=== PATIENT | female | born 1965 | race Caucasian/White ===

== ENCOUNTER → 2021-08-17 13:22 | Outpatient (BNVA) | payer OTHER, SELFPAY | PROVIDERS: PCP Internal Medicine; Referring Provider Internal Medicine; Visit Provider Surgery | DX: R22.9 Localized swelling, mass and lump, unspecified (principal) | CPT/HCPCS: 99202 ==

== ENCOUNTER 2021-09-18 07:40 | Outpatient (REF) | payer OTHER, SELFPAY ==
[2021-09-18 07:51] VITALS: BP 157/69; PULSE 110; RESP 16; TEMP 36.9; O2SAT 98
[2021-09-18 07:52] VITALS: BMI 17.9
--- NOTE | 2021-09-18 08:40 | W.PM.OPN ---
Operative Note Operative Note Date of Service: 09/18/21 Narrative: Preop diagnosis: epidermal inclusion cyst, sternum Postop diagnosis: same Procedure : excision of epidermal inclusion cyst, sternum Surgeon: Fan Ortega MD The patient is a 56F with a cystic mass on the sternum, about 3.4 cm in diameter. She understood the technique of excision under local anesthesia. She was aware of the risks, benefits and alternatives. She was brought to the Minor Procedure . She as placed supine. The area of the cyst was prepped and draped. Lidocaine 1% was used for local anesthesia. A surgical timeout had been done. I made a transverse incision on the skin overlying the cyst using a blade 15. This was carrried down through the full thickness of the skin and part of the subcutaneous fat until a cyst capsule was visualized. I diseected the cyst capsule off of the resut of the subcutaneous tissue with sharp dissection using scissors. The entire cyst was delivered and sent as a specimen. This was about 3.4 cm in widest diameter. I closed the incision with full thickness nylon 3-0 interrupted sutures. Dressings were applied and the procedure was completed. The patient tolerated the procedure well. There were no complications. Blood loss was about 1 cc. She was given wound care instructions.
== END 2021-09-18 07:41 | disposition home or self-care (01) ==
LOC: HO.MS 07:40
PROVIDERS: PCP Internal Medicine; Visit Provider Surgery
PROC: (CPT 11404; principal; 2021-09-18 08:00)
DX: L72.0 Epidermal cyst (principal)
CPT/HCPCS: 11404; 88304

== ENCOUNTER → 2021-10-10 10:07 | Outpatient (BNVA) | payer OTHER, SELFPAY | PROVIDERS: PCP Internal Medicine; Referring Provider Internal Medicine; Visit Provider Surgery | DX: Z48.02 Encounter for removal of sutures (principal) | CPT/HCPCS: 99211 ==

== ENCOUNTER 2022-03-26 15:25 | Outpatient (REF) | payer OTHER, SELFPAY ==
--- NOTE | ~2022-03-26 | XR_ITS ---
EXAMINATION: XR PELVIS NR SACRUM/COCCYX CLINICAL INFORMATION: S30.0XXA - Contusion of lower back and pelvis, initial encounter COMPARISON: None TECHNIQUE: The sacrum and coccyx are imaged in 3 views. The pelvis is imaged in 3 separate views. There are a total of 6 views. FINDINGS: There is no fracture or dislocation. No destructive process. No diastases SI joints or pubis. No hip joint narrowing or erosive change. The lumbosacral junction shows no spondylolisthesis or retrolisthesis. No presacral coccygeal soft tissue swelling. Bowel gas unremarkable. XR/XR sacrum coccyx min 2V IMPRESSION: No fracture or dislocation.
--- NOTE | ~2022-03-26 | XR_ITS ---
EXAMINATION: XR PELVIS NR SACRUM/COCCYX CLINICAL INFORMATION: S30.0XXA - Contusion of lower back and pelvis, initial encounter COMPARISON: None TECHNIQUE: The sacrum and coccyx are imaged in 3 views. The pelvis is imaged in 3 separate views. There are a total of 6 views. FINDINGS: There is no fracture or dislocation. No destructive process. No diastases SI joints or pubis. No hip joint narrowing or erosive change. The lumbosacral junction shows no spondylolisthesis or retrolisthesis. No presacral coccygeal soft tissue swelling. Bowel gas unremarkable. XR/XR pelvis min 3V IMPRESSION: No fracture or dislocation.
== END 2022-03-26 15:26 | disposition home or self-care (01) ==
LOC: HO.HMGCX 15:25
PROVIDERS: PCP Internal Medicine; Visit Provider Internal Medicine
DX: S30.0XXA Contusion of lower back and pelvis, initial encounter (principal); X58.XXXA Exposure to other specified factors, initial encounter; Y93.9 Activity, unspecified; Y92.9 Unspecified place or not applicable; Y99.9 Unspecified external cause status
CPT/HCPCS: 72190; 72220

== ENCOUNTER 2023-03-08 15:19 | Outpatient (AMB) | payer OTHER, SELFPAY ==
--- NOTE | 2023-03-08 16:22 | MHC.OFFWIV ---
Intake Vital Signs 03/08/23 16:23 Weight 113 lb BP 140/100 H Blood Pressure Location Rt brachial Position Sitting Pulse 110 H Pulse Source Pulse Oximeter Temp 98.4 F Temp Source Oral Pulse Oximetry (%) 97 Oxygen Delivery Method Room Air Intake Visit Reasons: EP Cough/Mucus/rib pain (masked) Intake Note: Patient here for a bad cough that has been present for a few days. she states she is having mucus come up and is having rib pain due to coughing. Patient Tobacco Use Status: Former Tobacco user Allergies No Known Allergies Allergy (Unverified 03/08/23 16:27) Do you need a note to return to daycare/school/sports/work: No HPI HPI Comments History of Present Illness Details This is a 57-year-old female with a past medical history of anxiety presenting for evaluation of a cough that she has had for the past 2 days. Patient reports that her cough is productive with phlegm and she will cough both day and night. 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 She denies having any fevers, chills, ear pain, sore throat, chest pain, hemoptysis or shortness of breath. Patient has been taking Mucinex and using cough drops for her symptoms. Patient also describes left-sided lateral chest wall pain when she coughs, especially at night. [facility] Medical History Subcutaneous mass Major depression, recurrent History of tobacco abuse Social History Housing: Apartment Patient Tobacco Use Status: Former Tobacco user Tobacco use type: Cigarette Years Smoked: 5 years Current occupational status: unemployed Review of Systems Const All systems reviewed & are unremarkable except as noted in HPI and below Denies chills, Denies fatigue and Denies malaise ENT Reports no additional complaints Card Reports no additional complaints, Denies dyspnea and Denies dyspnea on exertion Resp Reports chest congestion, Reports cough, Denies hemoptysis, Denies pain on inspiration, Denies pain with cough, Denies dyspnea and Denies dyspnea on exertion Reports no additional complaints Endo Denies fatigue Physical Exam Vital Signs: Last Vital Signs Temp 98.4 F 03/08/23 16:23 Pulse 110 H 03/08/23 16:23 BP 140/100 H 03/08/23 16:23 Pulse Ox 97 03/08/23 16:23 Oxygen Delivery Method Room Air 03/08/23 16:23 Const General: cooperative, healthy appearing, comfortable, alert and awake; No ill appearing or lethargic Nutritional Appearance: average body habitus Orientation/consciousness: patient oriented x3 and No lethargic Limitations: no limitations HEENT Head: Yes normal to inspection Ears: hearing grossly normal bilaterally, external ears normal and TM's normal bilaterally General nose exam: Normal external nose present Face and sinus: Yes normal facial exam Mouth: Normal oral and palatal mucosa present, lip normal and oropharynx normal Throat: Yes posterior oropharynx normal Eyes Conjunctivae: conjunctivae normal Chest Chest palpation & inspection: normal inspection of the chest and abnormal palpation of chest wall ( Mild discomfort to palpation of the left lateral chest wall, no ecchymos) Resp Effort & Inspection: normal respiratory effort, able to speak in complete sentences and no respiratory distress Auscultation: clear to auscultation bilaterally, no crackles, no rales, no rhonchi and no wheezes Cardio Rate: regular rate (Heart rate 92, regular rhythm) Rhythm: regular rhythm Skin General skin exam: no rashes or lesions noted Neuro General: patient oriented x3 Psych Appearance: grossly normal Mental Status: mental status grossly normal Insight: Good insight present (Psych) Judgement: Good judgement present (Psych) Assessment & Plan Assessment & Plan (1) Upper respiratory infection: Code(s): J06.9 - Acute upper respiratory infection, unspecified Plan: Patient will continue taking Mucinex and increase her daily water intake. Patient will additionally take ibuprofen as needed for her left-sided chest wall pain. Coding Level of Care Code Est Pt Level 3 (67920) Diagnoses Upper respiratory infection J06.9 Time Spent (min) 15
[2023-03-08 16:23] VITALS: BP 140/100; PULSE 110; TEMP 36.9; O2SAT 97
== END 2023-03-08 17:11 | disposition home or self-care (01) ==
PROVIDERS: PCP Internal Medicine; Visit Provider Physician Assistant
DX: J06.9 Acute upper respiratory infection, unspecified (principal)
CPT/HCPCS: 99213

== ENCOUNTER 2023-03-18 15:07 | Outpatient (AMB) | payer OTHER, SELFPAY ==
--- NOTE | 2023-03-18 16:37 | AM.OFFWIN_ITS ---
Intake Vital Signs 03/18/23 16:45 Weight 111 lb 2 oz BP 140/100 H Blood Pressure Location Lt brachial Position Sitting Pulse 88 Pulse Source Pulse Oximeter Temp 97.7 F Temp Source Oral Pulse Oximetry (%) 92 Oxygen Delivery Method Room Air Intake Visit Reasons: EST/tick right rib cage(lobby) Intake Note: Patien there for tick bite. Tick still in lower right side of abdomen. Patient Tobacco Use Status: Former Tobacco user Allergies No Known Allergies Allergy (Unverified 03/26/23 11:46) Medication List - Last Reconciled 03/26/23 by Nathan Porras MD albuterol sulfate 90 mcg/actuation (ProAir HFA) 1 inh inhalation QID PRN 30 days budesonide-formoterol 80-4.5 mcg/actuation (Symbicort) 1 inh inhalation BID 90 days escitalopram oxalate (Lexapro) 5 mg PO DAILY 90 days meloxicam 15 mg PO DAILY multivitamin 1 tab PO DAILY 90 days Do you need a note to return to daycare/school/sports/work: No HPI EST/tick right rib cage(lobby) HPI Details 57-year-old female presents to the [facility] for a sick visit. Patient would like to get evaluated for a tick bite. She noticed a tick below her ribcage a few hours ago. PFSH Medical History Subcutaneous mass Major depression, recurrent History of tobacco abuse Social History Housing: Apartment Patient Tobacco Use Status: Former Tobacco user Tobacco use type: Cigarette Years Smoked: 5 years Current occupational status: unemployed Physical Exam Vital Signs: Last Vital Signs Temp 97.7 F 03/18/23 16:45 Pulse 88 03/18/23 16:45 BP 140/100 H 03/18/23 16:45 Pulse Ox 92 03/18/23 16:45 Oxygen Delivery Method Room Air 03/18/23 16:45 Skin Other: Tiny deer tick removed from the right side of her ribcage. No visible bruising or rash seen. Assessment & Plan Assessment & Plan (1) Tick bite: Code(s): W57.XXXA - Bitten or stung by nonvenomous insect and other nonvenomous arthropods, initial encounter Plan: Patient was reassured. No prophylactic antibiotics needed. Signs and symptoms of Lyme disease explained. Lyme titer in 3 weeks. Orders: Orders Lyme IgG/IgM w/reflex to WB 3 Weeks W57.XXXA - Bitten or stung by nonvenomous insect and other nonvenomous arthropods, initial encounter Coding Level of Care Code Est Pt Level 3 (82712) Diagnoses Tick bite W57.XXXA
[2023-03-18 16:45] VITALS: BP 140/100; PULSE 88; TEMP 36.5; O2SAT 92
== END 2023-03-18 16:55 | disposition home or self-care (01) ==
PROVIDERS: PCP Internal Medicine; Visit Provider Internal Medicine
DX: S20.361A Insect bite (nonvenomous) of right front wall of thorax, initial encounter (principal); T63.481A Toxic effect of venom of other arthropod, accidental (unintentional), initial encounter; Z87.891 Personal history of nicotine dependence
CPT/HCPCS: 99213

== ENCOUNTER → 2024-03-20 15:33 | Outpatient (BNVA) | payer OTHER, SELFPAY | PROVIDERS: PCP Internal Medicine; Visit Provider Physician Assistant Medical | DX: J96.01 Acute respiratory failure with hypoxia (principal) | CPT/HCPCS: 99212 ==

== ENCOUNTER → 2024-03-20 15:33 | Outpatient (AMB) | payer OTHER, SELFPAY ==
--- OUTSIDE RECORDS SUMMARY | 2024-03-20 15:35 | XMS_ITS | Continuity of Care Document ---
Author Organization [facility] Address [address] [place] [id number]- Care Team Providers Care Autoclave Operator Name Role Phone Not on Staff, PCP Primary Care Physician Unavail able Encounter [facility] Date(s): 02/04/21 - 03/16/[address] [address] Attending Physician: Katia Sosa MD Admitting Physician: Katia Sosa MD Referring Physician: Katia Sosa MD Allergies, Adverse Reactions, Alerts Substance Reaction Severity Status propofol rigidity, prolonged apnea Ac tive Immunizations Given and Recorded Vaccine Date Status Refusal Reason SARS-CoV-2 (COVID-19) Ad26 vaccine 01/06/21 Given tetanus/diphtheria/pertussis, acel(Tdap) 01/05/21 Given Not Given Vaccine Date Status Refusal Reason pneumococcal 23-valent vaccine 03/14/19 Not Given Patient Refuses Medications docusate sodium 100 mg oral capsule 100 mg, 1, capsule, By Mouth, 2 times a day, # 60 capsule, Refills 0, Tot. Refills 0, Maintenance, 01/07/21 10:59:00 EDT, Route to Pharmacy Electronically, [facility], Partial fill uponpatient request if the prescription is for a schedu... Start Date: 01/07/21 Status: Ordered gabapentin 100 mg oral capsule 100 mg, By Mouth, 3 times a day, # 90 capsule, Refills 0, Tot. Refills 0, Maintenance, 03/14/19 9:13:12 EDT, Route to Pharmacy Electronically, [id number], [facility] Start Date: 03/14/19 Status: Ordered Multivitamin 1 tablet, By Mouth, Daily, 0 Refills, Maintenance, 03/13/19 17:20:04 EDT Start Date: 03/13/19 Status: Ordered Tylenol Extra Strength 1 tablet, By Mouth, Every 6 hours, as needed, 0 Refills, Maintenance, 03/13/19 17:19:39 EDT Start Date: 03/13/19 Status: Ordered Zanaflex 4 mg oral tablet 4 mg, By Mouth, 3 times a day, # 15 tablet, Refills 0, Tot. Refills 0, Maintenance, 03/14/19 9:13:20 EDT, Route to Pharmacy Electronically, [id number], [facility] Start Date: 03/14/19 Status: Ordered
--- OUTSIDE RECORDS SUMMARY | 2024-03-20 15:35 | XMS_ITS | Continuity of Care Document ---
Author Organization [facility] Address [address] [place] [id number]- Care Team Providers Care Group Sales Representative Name Role Phone Not on Staff, PCP Primary Care Physician Unavail able Encounter [facility] Date(s): 01/09/21 - 02/08/[address] [address] Attending Physician: Not on Staff, Attending MD Admitting Physician: Not on Staff, Admitting MD Referring Physician: Not on Staff, Referring MD Allergies, Adverse Reactions, Alerts Substance Reaction [...] 01/07/21 10:59:00 EDT, Route to Pharmacy Electronically, [facility], Partial fill uponpatient request if the prescription is for a schedu... Start Date: 01/07/21 Status: Ordered gabapentin 100 mg oral capsule 100 mg, By Mouth, 3 times a day, # 90 capsule, Refills 0, Tot. Refills 0, Maintenance, 03/14/19 9:13:12 EDT, Route to Pharmacy Electronically, [id number], [facility] Start Date: 03/14/19 Status: Ordered Multivitamin 1 tablet, By Mouth, Daily, 0 Refills, Maintenance, 10/04/19 17:20:04 EDT Start Date: 03/13/19 Status: Ordered Tylenol Extra Strength 1 tablet, By Mouth, Every 6 hours, as needed, 0 Refills, Maintenance, 03/13/19 17:19:39 EDT Start Date: 03/13/19 Status: Ordered Zanaflex 4 mg oral tablet 4 mg, By Mouth, 3 times a day, # 15 tablet, Refills 0, Tot. Refills 0, Maintenance, 03/14/19 9:13:20 EDT, Route to Pharmacy Electronically, [id number], [facility] Start Date: 03/14/19 Status: Ordered
--- OUTSIDE RECORDS SUMMARY | 2024-03-20 15:35 | XMS_ITS | Continuity of Care Document ---
Author Organization [facility] ter Address [address] [place] [address]- Care Team Providers Care Supervisor Paper Products Name Role Phone Not on Staff, PCP Primary Care Physician Unavail able [facility]counter [facility] Date(s): 05/12/21 - 05/23/[address] [address]- Encounter Diagnosis Sepsis with acute hypoxic respiratory failure and septic shock(Final) - 05/12/21 Discharge Disposition: A-D/C Home Attending Physician: Sesar Lucas MD Admitting Physician: Hyacinth Thomas MD Referring Physician: Not on Staff, Referring MD Allergies, Adverse Reactions, Alerts Substance Reaction Severity Status propofol Active Immunizations Given and Recorded Vaccine Date Status Refusal Reason pneumococcal 13-valent vaccine 05/23/21 Given influenza virus vaccine, inactivated 05/23/21 Give n SARS-CoV-2 (COVID-19) Ad26 vaccine 01/06/21 Record ed tetanus/diphtheria/pertussis, acel(Tdap) 01/05/21 Recorded Medications acetaminophen 325 mg oral tablet 650 mg, 2, tablet, By Mouth, Every 6 hours, # 60 tablet, Refills 0, Tot. Refills 0, Maintenance, 05/23/21 8:00:00 EST, Route to Pharmacy Electronically, [facility], Partial fill upon patient request if the prescription is for a schedule... Start Date: 05/23/21 Status: Ordered acetaminophen 325 mg oral tablet 650 mg, Tablet, By Mouth, 05/23/21 2:00:00 EST Start Date: 05/23/21 Stop Date: 05/23/21 Status: Completed acetaminophen 325 mg oral tablet 650 mg, Tablet, By Mouth, 05/23/21 8:00:00 EST Start Date: 05/23/21 Stop Date: 05/23/21 Status: Completed Albuterol (Eqv-ProAir HFA) 90 mcg/inh inhalation aerosol 2 puffs, Inhalation, Every 6 hours, PRN Wheezing/Shortness of Breath, # 6.7 Gm, 0 Refills, Maintenance, 05/23/21 8:03:00 EST, [facility], Partial fill upon patient request if the prescription is for a schedule II opioid drug., 2 puffs In... Start Date: 05/23/21 Status: Ordered amoxicillin-clavulanate 875 mg-125 mg oral tablet = 875 mg, By Mouth, 2 times a day, # 6 capsule, 0 Refills, Acute 05/26/21 22:00:00 EST, 05/23/21 8:02:00 EST, Tablet, [facility], Partial fill upon patient request if the prescription is for a schedule II opioid drug., 154, cm, 05/22/21... Start Date: 05/23/21 Stop Date: 05/26/21 Status: Ordered Symbicort 160mcg/4.5mcg Inhaler 2, puffs, Inhalation, 2 times a day, # 6 Gm, Refills 0, Tot. Refills 0, Maintenance, 05/23/21 8:03:00 EST, Aerosol, Route to Pharmacy Electronically, [id number], [facility], 154, cm, 05/22/21 8:52:00 EST, Height... Start Date: 05/23/21 Status: Ordered Problem List Condition Effective Dates Status Health Status Inform ant Fracture(Confirmed) 1 Active 1Left tibial Intramedulllary Nailing Procedures Procedure Date Related Diagnosis Body Site Status Fracture of fibula Comple tabby Fracture of tibia AND fibula Completed Results Orders for Microbiology Reports Name Date Lower Resp Tract Culture w/ Gram Smear 1 07/14/20 AFB Culture w/ AFB Smear, Respiratory Fungal Culture, Respiratory 05/13/21 Sputum Culture w/ Gram Smear 05/13/21 Blood Culture 05/12/21 Blood Culture #2 05/12/21 Microbiology Reports TEST:Lower Respiratory Tract Culture STATUS:Auth (Verified) BODY SITE: SOURCE:BRONCH COLLECTED DATE/TIME:05/13/21 1:55 PM Lower Respiratory Tract Culture SPECIMEN DESCRIPTION : BRONCH. WASH, LEFT LUNG LT UPPER LOBE SPECIAL REQUESTS : NONE GRAM STAIN : 2+ POLYMORPHONUCLEAR LEUKOCYTES NO ORGANISMS SEEN CULTURE : NO GROWTH 2 DAYS REPORT STATUS : FINAL 05/15/2021 TEST:AFB Culture w/AFB Smear, Respiratory STATUS:Unauthenticated BODY SITE: SOURCE:BRONCH COLLECTED DATE/TIME:05/13/21 1:55 PM AFB Culture w/AFB Smear, Respiratory SPECIMEN DESCRIPTION : BRONCH. WASH, LEFT LUNGL SPECIAL REQUESTS : NONE DIRECT EXAM : NO ACID FAST BACILLI SEEN ON DIRECT SMEAR, TEST PERFORMED AT [facility] No acid fast bacilli seen on concentrated smear. Per [facility] protocol, this specimen was concentrated prior to smear preparation. [facility], [address] [place] [id number]. CULTURE : SPECIMEN SENT TO [facility], [place], [place] REPORT STATUS : PRELIMINARY REPORT TEST:Fungal Culture, Respiratory STATUS:Unauthenticated BODY SITE: SOURCE:BRONCH COLLECTED DATE/TIME:05/13/21 1:55 PM Fungal Culture, Respiratory SPECIMEN DESCRIPTION : BRONCH. WASH, LEFT LUNGL SPECIAL REQUESTS : NONE DIRECT EXAM : NO FUNGAL ELEMENTS OBSERVED CULTURE : NO FUNGI ISOLATED AFTER 9 DAYS REPORT STATUS : PRELIMINARY REPORT TEST:Sputum Culture STATUS:Auth (Verified) BODY SITE: SOURCE:ENDOTR COLLECTED DATE/TIME:05/13/21 10:59 AM Sputum Culture SPECIMEN DESCRIPTION : ENDOTRACHEAL ASPIRATE SPECIAL REQUESTS : NONE GRAM STAIN : 1+ POLYMORPHONUCLEAR LEUKOCYTES 1+ GRAM POSITIVE COCCI 1+ GRAM NEGATIVE RODS 1+ GRAM POSITIVE RODS CULTURE : 2+ STAPHYLOCOCCUS AUREUS. 1+ NORMAL ALEX REPORT STATUS : FINAL 05/15/2021 ORGANISM 2+ STAPHYLOCOCCUS AUREUS. METHOD MIN. INHIB. CONC. (MCG/ML) CIPROFLOXACIN SUSCEPTIBLE CLINDAMYCIN SUSCEPTIBLE ERYTHROMYCIN SUSCEPTIBLE LEVOFLOXACIN SUSCEPTIBLE OXACILLIN SUSCEPTIBLE PENICILLIN SUSCEPTIBLE RIFAMPIN SUSCEPTIBLE RIFAMPIN RIFAMPIN SHOULD NOT BE USED ALONE FOR ANTIMICROBIAL RIFAMPIN THERAPY. TETRACYCLINE SUSCEPTIBLE TRIMETH/SULFAMETHOX SUSCEPTIBLE VANCOMYCIN SUSCEPTIBLE TEST:Blood Culture, Second Order STATUS:Auth (Verified) BODY SITE: SOURCE:Blood COLLECTED DATE/TIME:05/12/21 1:03 PM Blood Culture, Second Order SPECIMEN DESCRIPTION : BLOOD R HAND SPECIAL REQUESTS : NONE CULTURE : NO GROWTH 5 DAYS. REPORT STATUS : FINAL 05/17/2021 TEST:Blood Culture STATUS:Auth (Verified) BODY SITE: SOURCE:Blood COLLECTED DATE/TIME:05/12/21 12:02 PM Blood Culture SPECIMEN DESCRIPTION : BLOOD LAC SPECIAL REQUESTS : NONE CULTURE : NO GROWTH 5 DAYS. REPORT STATUS : FINAL 05/17/2021 Radiology Reports * Exam Date Time Procedure Performing Provider Status 05/19/21 3:53 PM Chest 2 Views Frontal and Lat Bridget Ramirez; Auth (Verified) Notes: (Chest 2 Views Frontal and Lat) Reason For Exam: Shortness of Breath RESULT: Chest 2 Views Frontal and Lat Chest 2 Views Frontal and Lat INDICATION: Pneumonia. Respiratory failure. COMPARISON: Prior chest radiograph, most recent 05/14/2021. Chest 05/12/2021. FINDINGS: LINES AND TUBES: Endotracheal and enteric tubes have been removed. Unchanged right IJ central venous line with tip in the mid SVC. LUNGS AND PLEURA: Significantly improved aeration of the left lung with remaining focal areas of consolidation in theupper and lower lobes. Likely superimposed small left pleural effusion. Right lung is clear. No pneumothorax. HEART, MEDIASTINUM AND REBECA: Left cardiac silhouette obscured by pulmonary opacities. Normal upper mediastinal and hilar contour. BONES AND SOFT TISSUES: Chronic right posterior seventh and eighth rib fractures with callus formation. Mild degenerative changes throughout the thoracic spine, similar to prior studies. IMPRESSION: Significantly improved aeration of the left lung with mild to moderate residual focal areas of consolidation in both lobes. I have personally reviewed the images and I agree with this report. WSN: [id number] Ordering Physician: Florentino Mckinnon Dictated By: Avelina Fragoso MD Dictated Date/Time: 05/19/21 4:19 pm Reviewed By: Shahid Koroma MD Signed By: Shahid Koroma MD Signed Date/Time: 05/19/21 4:24 pm Transcribed By: ROBINSON Transcribed Date/Time: 05/19/21 4:16 pm * Exam Date Time Procedure Performing Provider Status 05/14/21 1:06 PM Chest Portable Seema Lopez; Auth (Verified) Notes: (Chest Portable) Reason For Exam: Tube Placement RESULT: Chest Portable Chest Portable Reason: Tube Placement; Clinical Question(s): Tube Placement COMPARISON: 05/12/2021 FINDINGS: LINES AND TUBES: Enteric tube tip is approximately 4 cm above the jose r. There is a right IJ central venous catheter with tip in the SVC. Enteric tube tip is in the stomach. IV catheter projects over the soft tissues of the left neck. LUNGS AND PLEURA: Diffuse airspace consolidation of the left lung with mildly improved aeration in the upper lung compared with most recent prior. Right lung is clear. Stable small left effusion. No pneumothorax. HEART, MEDIASTINUM AND REBECA: Heart is normal in size. Normal upper mediastinal and hilar contour. BONES AND SOFT TISSUES: No acute abnormality. Healed right rib fractures. IMPRESSION: Mildly improved aeration in the left upper lung. Otherwise no significant interval change in diffuse left lung consolidation and small left effusion. WSN: [id number] Ordering Physician: Shyann Kahn Dictated By: Bridget Raymundo MD Dictated Date/Time: 05/14/21 4:47 pm Reviewed By: Bridget Raymundo MD Signed By: Bridget Raymundo MD Signed Date/Time: 05/14/21 4:47 pm Transcribed By: ROBINSON Transcribed Date/Time: 05/14/21 4:45 pm * Exam Date Time Procedure Performing Provider Status 05/12/21 10:32 PM Chest Portable Mariah Vitale; Daniel ( Verified) Notes: (Chest Portable) Reason For Exam: R IJ placement;Line Placement RESULT: Chest Portable Chest Portable INDICATION: Line Placement; R IJ placement. COMPARISON: Chest radiograph and CT chest earlier same day. FINDINGS: LINES AND TUBES: New right IJ central venous line, tip projects in the mid to distal SVC. Limited evaluation of endotracheal tube relative to the jose r, appears in good position recent CT. Enteric tube present, tip out of the [id number]. LUNGS AND PLEURA: Unchanged near complete opacification of the left lung with mild preserved aeration in the mid lung. Small left pleural effusion. No pneumothorax. HEART, MEDIASTINUM AND REBECA: Heart is normal in size. Normal upper mediastinal and hilar contour. BONES AND SOFT TISSUES: No acute abnormality. Chronic right rib fractures. IMPRESSION: New right IJ central venous line, tip projects in the mid to distal SVC. No pneumothorax. Unchanged near complete opacification of the left lung. I have personally reviewed the images and I agree with this report. WSN: [id number] Ordering Physician: Ernesto Ngo Dictated By: Avelina Fragoso MD Dictated Date/Time: 05/12/21 11:50 p Reviewed By: Christ Danielson MD Signed By: Christ Danielson MD Signed Date/Time: 05/12/21 11:55 pm Transcribed By: ROBINSON Transcribed Date/Time: 05/12/21 11:43 pm * Exam Date Time Procedure Performing Provider Status 05/12/21 12:45 PM Chest Portable Meño , Mesha; Auth ( Verified) Notes: (Chest Portable) Reason For Exam: Shortness of Breath RESULT: Chest Portable Chest Portable INDICATION: Shortness of Breath; Clinical Question(s): CHF COMPARISON: None. FINDINGS: LINES AND TUBES: Tip of the endotracheal tube projects in the right mainstem bronchus. Enteric tube with sidehole below the diaphragm, tip of the field of view. LUNGS AND PLEURA: Diffuse patchy opacification of the left lung with areas of preserved aeration in the mid lung. Left mainstem bronchus is obscured. No significant volume loss. Few nodular opacities in the periphery of the right lung. Subsegmental atelectasis in the right upper lobe. No pneumothorax. HEART, MEDIASTINUM AND REBECA: Heart is normal in size. Normal upper mediastinal and hilar contour. BONES AND SOFT TISSUES: No acute abnormality. IMPRESSION: Tip of the endotracheal tube projects in the right mainstem bronchus. Near complete opacification of the left lung without significant volume loss to suggest collapse. Findings are likely related to aspiration or consolidation. Left mainstem bronchus appears opacified. Few nodular opacities in the periphery of the right lung. Findings were discussed with Dr. Sarabia on 05/12/2021 at 1:00 PM. I have personally reviewed the images and I agree with this report. WSN: [id number] Ordering Physician: Madan Sarabia V Dictated By: Avelina Fragoso MD Dictated Date/Time: 05/12/21 1:36 pm Reviewed By: Portillo King MD Signed By: Portillo King MD Signed Date/Time: 05/12/21 1:41 pm Transcribed By: ROBINSON Transcribed Date/Time: 05/12/21 1:12 pm Vital Signs Most recent to oldest [Reference Range]: 1 2 3 Height 154 cm (05/23/21 8:10 AM) 154 cm (05/22/21 8:52 AM) 154 cm (05/19/21 7:43 PM) Weight 46.5 kg (05/18/21 6:36 AM) 43.3 kg (05/12/21 6:02 PM) Oxygen Saturation [94-100 %] 96 % (05/23/21 8:10 AM) 92 % *L* (05/22/21 11:00 PM) 93 % *L* (05/22/21 8:00 PM) Pulse Rate [55-90 bpm] 102 bpm *H* (05/23/21 8:10 AM) 106 bpm *H* (05/22/21 11:00 PM) 110 bpm *H* (05/22/21 8:00 PM) Blood Pressure [90-138/55-84 mm Hg] 136/59mm Hg (05/23/21 8:10 AM) 118/53mm Hg (05/22/21 11:00 PM) 109/52mm Hg (05/22/21 8:00 PM) Respiratory Rate [16-30 br/min] 16 br/min (05/23/21 8:42 AM) 18 br/min (05/23/21 8:10 AM) 16 br/min (05/23/21 2:36 AM) Temperature [96.8-100.4 DegF] 98.6 DegF (05/23/21 8:10 AM) 98.4 DegF (05/22/21 11:00 PM) 99.0 DegF (05/22/21 8:00 PM) Liters per Minute 2 L/min (05/22/21 8:52 AM) 2 L/min (05/21/21 11:00 PM) 2 L/min (05/21/21 7:00 PM) Mode of Delivery (Oxygen) Room air (05/23/21 8:10 AM) Room air (05/22/21 11:00 PM) Room air (05/22/21 8:00 PM) Blood pressure sites Arm, left (05/23/21 8:10 AM) Arm, left (05/22/21 11:00 PM) Arm, left (05/22/21 8:00 PM) Temperature Route Oral (05/23/21 8:10 AM) Oral (05/22/21 11:00 PM) Oral (05/22/21 8:00 PM) Dry Weight 45 kg (05/12/21 3:06 PM) Weight Obtained Via Bed scale (05/18/21 6:36 AM) Bed scale (05/12/21 6:02 PM) Social History Social History Type Response Smoking Status 10 or more cigarette s (1/2 pack or more)/day in last 30 days entered on: 05/12/21 Sex
--- OUTSIDE RECORDS SUMMARY | 2024-03-20 15:35 | XMS_ITS | Continuity of Care Document ---
Author Organization [facility] Address [address] [place] [id number]- Care Team Providers Care Meter Attendant Name Role Phone Not on Staff, PCP Primary Care Physician Unavail able [facility]counter [facility] Date(s): 02/14/21 - 03/16/[address] [address] Attending Physician: AdmDenise barrientos Admitting Physician: Admtr, Denise Referring Physician: Admtr, Ar8 Allergies, Adverse Reactions, Alerts Substance Reaction Severity [...] 01/07/21 10:59:00 EDT, Route to Pharmacy Electronically, [facility], Partial fill uponpatient request if the prescription is for a schedu... Start Date: 01/07/21 Status: Ordered gabapentin 100 mg oral capsule 100 mg, By Mouth, 3 times a day, # 90 capsule, Refills 0, Tot. Refills 0, Maintenance, 03/14/19 9:13:12 EDT, Route to Pharmacy Electronically, [id number], [facility] Start Date: 03/14/19 Status: Ordered [...] 03/14/19 9:13:20 EDT, Route to Pharmacy Electronically, [id number], [facility] Start Date: 03/14/19 Status: Ordered
--- OUTSIDE RECORDS SUMMARY | 2024-03-20 15:35 | XMS_ITS | Continuity of Care Document ---
Author Organization [facility] ter Address [address] [place] [address]- Care Team Providers Care Tungsten Tender Name Role Phone Miguel GARNER, Roly Primary Care Physician [phone] Encounter [facility] Date(s): 05/26/22 - 05/26/[address] [address]- Encounter Diagnosis Food impaction of esophagus(Final) - 05/26/22 Discharge Disposition: A-D/C Home Attending Physician: Myrna Hartman MD Admitting Physician: Myrna Hartman MD Referring Physician: Not on Staff, Referring MD Allergies, Adverse Reactions, Alerts Substance Reaction Severity Status propofol rigidity, prolonged apnea Ac tive Immunizations Given and Recorded Vaccine Date Status Refusal Reason pneumococcal 13-valent vaccine 05/23/21 Given influenza virus vaccine, inactivated 05/23/21 Give n SARS-CoV-2 (COVID-19) Ad26 vaccine 01/06/21 Given SARS-CoV-2 (COVID-19) Ad26 vaccine 01/06/21 Record ed tetanus/diphtheria/pertussis, acel(Tdap) 01/05/21 Given tetanus/diphtheria/pertussis, acel(Tdap) 01/05/21 Recorded Not Given Vaccine Date Status Refusal Reason pneumococcal 23-valent vaccine 03/14/19 Not Given Patient Refuses Medications acetaminophen 325 mg oral tablet 650 mg, 2, tablet, By Mouth, Every 6 hours, # 60 tablet, Refills 0, Tot. Refills 0, Maintenance, 05/23/21 8:00:00 EST, Route to Pharmacy Electronically, [facility], Partial fill upon patient request if the prescription is for a schedule... Start Date: 05/23/21 Status: Ordered Albuterol (Eqv-ProAir HFA) 90 mcg/inh inhalation aerosol 2 puffs, Inhalation, Every 6 hours, PRN Wheezing/Shortness of Breath, # 6.7 Gm, 0 Refills, Maintenance, 05/23/21 8:03:00 EST, [facility], Partial fill upon patient request if the prescription is for a schedule II opioid drug., 2 puffs In... Start Date: 05/23/21 Status: Ordered docusate sodium 100 mg oral capsule 100 mg, 1, capsule, By Mouth, 2 times a day, # 60 capsule, Refills 0, Tot. Refills 0, Maintenance, 01/07/21 10:59:00 EDT, Route to Pharmacy Electronically, [facility], Partial fill uponpatient request if the prescription is for a schedu... Start Date: 01/07/21 Status: Ordered gabapentin 100 mg oral capsule 100 mg, By Mouth, 3 times a day, # 90 capsule, Refills 0, Tot. Refills 0, Maintenance, 03/14/19 9:13:12 EDT, Route to Pharmacy Electronically, [id number], [facility] Start Date: 03/14/19 Status: Ordered MorPHINE Inj 2 mg, Injection, IV Push Slowly, Once, STAT, 05/26/22 19:41:00 EST, Stop date 05/26/22 19:41:00 EST Start Date: 05/26/22 Stop Date: 05/26/22 Status: Completed Multivitamin 1 tablet, By Mouth, Daily, 0 Refills, Maintenance, 03/13/19 17:20:04 EDT Start Date: 03/13/19 Status: Ordered omeprazole 20 mg oral enteric coated capsule 1 capsule = 20 mg, By Mouth, 2 times a day, # 60 capsule, 0 Refills, Maintenance, 05/26/22 22:33:00EST, CR Capsule, [id number], Partial fill upon patient request if the prescription is for aschedule II opioid drug., 154, cm, 05/23/21 8:10:00... Start Date: 05/26/22 Status: Ordered Symbicort 160mcg/4.5mcg Inhaler 2, puffs, Inhalation, 2 times a day, # 6 Gm, Refills 0, Tot. Refills 0, Maintenance, 05/23/21 8:03:00 EST, Aerosol, Route to Pharmacy Electronically, [id number], [facility], 154, cm, 05/22/21 8:52:00 EST, Height... Start Date: 05/23/21 Status: Ordered Tylenol Extra Strength 1 tablet, By Mouth, Every 6 hours, as needed, 0 Refills, Maintenance, 03/13/19 17:19:39 EDT Start Date: 03/13/19 Status: Ordered Zanaflex 4 mg oral tablet 4 mg, By Mouth, 3 times a day, # 15 tablet, Refills 0, Tot. Refills 0, Maintenance, 03/14/19 9:13:20 EDT, Route to Pharmacy Electronically, [id number], [facility] Start Date: 03/14/19 Status: Ordered Problem List Condition Confirmation Course Effective Dates Status Health atus Informant Fracture 1 Confirmed Active 1Left tibial Intramedulllary Nailing Procedures Procedure Date Related Diagnosis Body Site Status Endoscopy of upper gastroint estinal tract and removal of foreign body from esophagus 05/26/22 Completed Results Radiology Reports * Exam Date Time Procedure Performing Provider Status 05/26/22 8:24 PM Chest Portable Ileana Wise; Aut h (Verified) Notes: (Chest Portable) Reason For Exam: Shortness of Breath RESULT: Chest Portable Chest Portable Hx of Present Illness: FB throat; Reason: Shortness of Breath; Clinical Question(s): CHF COMPARISON: 05/19/2021 FINDINGS: LINES AND TUBES: None. LUNGS AND PLEURA: Clear lungs. Normal pulmonary vascularity. No pleural effusion. No pneumothorax. HEART, MEDIASTINUM AND REBECA: Unchanged. BONES AND SOFT TISSUES: No acute abnormality. IMPRESSION: No acute abnormality. WSN: [id number] Ordering Physician: Mihaela Milligan Dictated By: Christ Danielson MD Dictated Date/Time: 05/26/22 8:26 pm Reviewed By: Christ Danielson MD Signed By: Christ Danielson MD Signed Date/Time: 05/26/22 8:26 pm Transcribed By: ROBINSON Transcribed Date/Time: 05/26/22 8:26 pm Vital Signs Most recent to oldest [Reference Range]: 1 2 3 Oxygen Saturation [94-100 %] 97 % (05/26/22 6:18 PM) 95 % (05/26/22 6:00 PM) 93 % *L* (05/26/22 5:51 PM) Pulse Rate [55-90 bpm] 104 bpm *H* (05/26/22 6:18 PM) 94 bpm *H* (05/26/22 6:00 PM) 114 bpm *H* (05/26/22 5:51 PM) Blood Pressure [90-138/55-84 mm Hg] 177/112mm Hg *H* (05/26/22 6:18 PM) 150/103mm Hg *H* (05/26/22 6:00 PM) Respiratory Rate [16-30 br/min] 18 br/min (05/26/22 8:25 PM) 23 br/min (05/26/22 6:18 PM) 19 br/min (05/26/22 6:00 PM) Temperature [96.8-100.4 DegF] 98.6 DegF (05/26/22 6:18 PM) 99 DegF (05/26/22 6:00 PM) Mode of Delivery (Oxygen) Room air (05/26/22 6:18 PM) Room air (05/26/22 6:00 PM) Room air (05/26/22 5:51 PM) Blood pressure sites Arm, left (05/26/22 6:18 PM) Arm, left (05/26/22 6:00 PM) Temperature Route Oral (05/26/22 6:18 PM) Oral (05/26/22 6:00 PM) Social History Social History Type Response Smoking Status 10 or more cigarette s (1/2 pack or more)/day in last 30 days entered on: 05/12/21 Sex Endoscopy study * Event Display: GG EGD Please click on pdf link to open report Portable XR Chest Views * [facility] , CIS S: TRANSCRIBE Christ Danielson MD: VERIFY Event Display: Result: Authored Date: Chest Portable Hx of Present Illness: FB throat; Reason: Shortness of Breath; Clinical Question(s): CHF COMPARISON: 05/19/2021 FINDINGS: LINES AND TUBES: None. LUNGS AND PLEURA: Clear lungs. Normal pulmonary vascularity. No pleural effusion. No pneumothorax. HEART, MEDIASTINUM AND REBECA: Unchanged. BONES AND SOFT TISSUES: No acute abnormality. IMPRESSION: No acute abnormality. WSN: [id number] Ordering Physician: Mihaela Milligan Dictated By: Christ Danielson MD Dictated Date/Time: 05/26/22 8:26 pm Reviewed By: Christ Danielson MD Signed By: Christ Danielson MD Signed Date/Time: 05/26/22 8:26 pm Transcribed By: ROBINSON Transcribed Date/Time: 05/26/22 8:26 pm Patient Care team information Care Team Personnel Name: Sanket Argueta RN Position: [facility] RN Member Role: Primary Care Nurse Name: Katie Shannon RN Position: [facility] RN Member Role: Primary Care Nurse Name: Karin Jose RN Position: [facility] RN Member Role: Primary Care Nurse Name: Anabel Gilliam RN Position: [facility] RN Member Role: Primary Care Nurse Name: Roly Rivera MD Position: [facility] Physician (General Medicine) Member Role: PCP Address: Address: [address] [place] [address]- Name: Amy Smart RN Position: [facility] RN Member Role: Primary Care Nurse Name: Pretty Cruz RN Position: [facility] ED RN W/OE and Tasks Member Role: Primary Care Nurse Name: Saida Beebe RN Position: [facility] RN Member Role: Primary Care Nurse Name: Kina Plaza RN Position: [facility] RN Member Role: Primary Care Nurse Name: April Maria RN Position: [facility] RN Member Role: Primary Care Nurse Name: Linh Harris Position: [facility] ED ADAM OLIVARES Name: Jackie Crum RN Position: [facility] ED RN W/OE and Tasks Member Role: Patient Care Provider Name: Mihaela Milligan MD Position: S Resident Member Role: ED Resident Address: Address: [address] [place] [id number]- [place] Name: Jeffrey Barba RN Position: [facility] ED RN W/OE and Tasks Member Role: Patient Care Provider Name: Devan GARNER, Myrna Moyer Position: [facility] ED Medicine MD Member Role: Admitting Physician Address: Address: [address] [place] [address] [place] [address]- Care Team Related Persons Name: CHAPARRO BENAVIDES Address: home [address] [place] [address]
[2024-03-20 15:42] VITALS: BP 160/90; PULSE 123; O2SAT 86
--- NOTE | 2024-03-20 15:42 | MHC.OFFWIV ---
Intake Vital Signs 03/20/24 15:42 BP 160/90 H Blood Pressure Location Rt brachial Position Sitting Pulse 123 H Pulse Source Pulse Oximeter Pulse Oximetry (%) 86 L Oxygen Delivery Method Room Air Intake Visit Reasons: EP cough, SOB Patient Tobacco Use Status: Former Tobacco user Allergies No Known Allergies Allergy (Unverified 03/26/23 11:46) Do you need a note to return to daycare/school/sports/work: No HPI HPI Comments History of Present Illness Details This is a 58-year-old female with history of former tobacco use although denies current tobacco use who presented to the walk-in clinic complaining of severe shortness of breath and cough. Upon arrival to the walk-in clinic, patient was found to be in severe acute respiratory distress with labored breathing, accessory muscle usage, and tachypnea. She was found to be hypoxic to 86% on room air and tachycardic to the 130s. Patient was placed on 2 L via nasal cannula; however, her oxygen saturations continued to drop into the 70s. She was then placed on 2 L via face mask with instructions to take deep breaths through her nose and her oxygen saturations improved to 97%. Patient admits to productive cough with yellow-green sputum and significant shortness of breath for the past several days. 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 Patient denies a history of asthma or COPD and she denies current tobacco use; however, it does appear that she has a history of tobacco use and she has been prescribed albuterol and Symbicort in the past. She denies any recent travel or recent surgeries. She denies any estrogen or hormonal treatments. She denies any lower extremity edema. [facility] Medical History Subcutaneous mass Major depression, recurrent History of tobacco abuse Social History Housing: Apartment Patient Tobacco Use Status: Former Tobacco user Tobacco use type: Cigarette Years Smoked: 5 years Current occupational status: unemployed Review of Systems Const All systems reviewed & are unremarkable except as noted in HPI and below Reports no additional complaints Eyes Reports no additional complaints ENT Reports no additional complaints Card Reports no additional complaints Resp Reports no additional complaints GI Reports no additional complaints Reports no additional complaints Musc Reports no additional complaints Skin/Breast Reports system reviewed and no additional complaints, except as documented Neuro Reports no additional complaints Psych Reports no additional complaints Endo Reports no additional complaints Dany/Lymph Reports no additional complaints Aller/Immun Reports no additional complaints Physical Exam Vital Signs: Last Vital Signs Pulse 123 H 03/20/24 15:42 BP 160/90 H 03/20/24 15:42 Pulse Ox 86 L 03/20/24 15:42 Oxygen Delivery Method Room Air 03/20/24 15:42 Const Other: Vital signs reviewed. Constitutional: Patient is ill-appearing. She is in acute distress with labored breathing, tachypnea, accessory muscle usage. HEENT: Normocephalic and atraumatic. PERRL/EOMI. Skin: Warm and dry. No rashes or lesions noted. Neck: Full and painless range of motion. No cervical lymphadenopathy. Cardio: Tachycardic with regular rhythm. No murmurs, gallops, or rubs. No lower extremity edema. No JVD. Pulmonary: She is in acute respiratory distress with labored breathing, tachypnea, accessory muscle usage. She has significantly decreased air entry throughout both lungs without any appreciated wheezing, crackles, or rhonchi. She has a frequent productive/junky cough. Gastrointestinal: Soft, nontender, and nondistended in all 4 quadrants. Musculoskeletal: Normal range of motion in joints throughout the body. No deformity or other signs of injury. Neuro: Alert and oriented x4. Cranial nerves 2-12 grossly intact. No focal deficits appreciated. Psych: Normal mood and affect. Assessment & Plan Assessment & Plan (1) Acute hypoxic respiratory failure: Code(s): J96.01 - Acute respiratory failure with hypoxia Plan: This is a 58-year-old female who presented to the walk-in clinic complaining of shortness of breath and cough. Upon arrival, she was found to be in severe acute respiratory distress with tachypnea, labored breathing, accessory muscle usage. On physical examination, she has poor air entry throughout both lungs without any appreciated wheezing, crackles, or rhonchi. Patient was placed on 2 L of oxygen with improvement in her oxygen saturations. Patient does not utilize oxygen at home. She denies a history of asthma or COPD; however, she is a former smoker and has been prescribed albuterol and Symbicort in the past. There is concern for possible pneumonia versus pleural effusion versus pulmonary embolism versus other acute cardiopulmonary process. EMS was called and patient was transferred to the emergency room for further evaluation. Coding Level of Care Code Est Pt Level 3 (68549) Diagnoses Acute hypoxic respiratory failure J96.01
== END ==
PROVIDERS: PCP Internal Medicine; Visit Provider Physician Assistant Medical
DX: J96.01 Acute respiratory failure with hypoxia (principal)

== ENCOUNTER 2024-04-21 09:19 | Outpatient (REF) | payer OTHER, SELFPAY ==
[2024-04-21 13:37] LABS: MANUAL DIFF FLAG NO
[2024-04-21 13:39] LABS: Hematocrit 45.7 % (37.0-47.0); Hemoglobin 14.8 g/dl (12.0-16.0); Imm Gran Pct Auto 0.4 % (0.0-0.4); Mean Corpuscular HGB Conc 32.4 g/dl (31.0-35.0); Mean Corpuscular Hemoglobin 30.3 pg (27.0-33.0); Mean Corpuscular Volume 93.5 fL (80.0-98.0); Neutrophils Percent Auto 63.8 % (45-73); Platelet Count 510 X10*3/uL (160-400); Red Blood Count 4.89 X10*6/uL (4.20-5.50); Red Cell Distribution Width 13.5 % (11.0-16.0); White Blood Count 7.4 X10*3/uL (4.8-10.8)
[2024-04-21 13:40] LABS: Basophils Absolute Auto 0.1 X10*3/uL (0.0-0.2); Basophils Percent Auto 1.5 % (0-2); Eosinophils Absolute Auto 0.4 X10*3/uL (0.0-0.4); Eosinophils Percent Auto 5.1 % (0-4); Imm Gran Abs Auto 0.03 X10*3/uL (0.00-0.03); Lymphocytes Absolute Auto 1.6 X10*3/uL (1.2-4.9); Lymphocytes Percent Auto 22.2 % (20-40); Monocytes Absolute Auto 0.5 X10*3/uL (0.1-1.2); Neutrophils Absolute Auto 4.7 x10*3/uL (2.0-8.3)
[2024-04-21 14:22] LABS: Alanine Aminotransferase 22 U/L (0-31); Albumin Level 4.5 g/dL (3.5-5.0); Alkaline Phosphatase 110 U/L (39-117); Anion Gap 14 (12-20); Aspartate Amino Transferase 23 U/L (5-31); Bilirubin Total 0.2 mg/dL (0.0-1.0); Blood Urea Nitrogen 16 mg/dL (9-16); Calcium 10.5 mg/dL (8.4-10.2); Carbon Dioxide 32 mmol/L (22-29); Chloride 99 mmol/L (96-108); Estimated Glomerular Filt Rate > 60; Glucose Random 104 mg/dL (60-115); Potassium 4.6 mmol/L (3.3-5.1); Sodium 140 mmol/L (135-145); Total Protein 7.9 g/dL (6.5-8.0)
[2024-04-21 14:28] LABS: TSH reflex Free T4 1.98 uIU/mL (0.32-4.0)
[2024-04-23 19:29] LABS: LDL Cholesterol Direct 126 mg/dL (<100)
[2024-04-25 17:19] LABS: Vitamin D 25-OH, D2 <4 ng/mL; Vitamin D 25-OH, D3 20 ng/mL; Vitamin D 25-OH, Total 20 ng/mL (30-100)
== END 2024-04-21 09:20 | disposition home or self-care (01) ==
LOC: HO.HMGCLDS 09:19
PROVIDERS: PCP Internal Medicine; Visit Provider Internal Medicine
DX: J44.9 Chronic obstructive pulmonary disease, unspecified (principal); I10 Essential (primary) hypertension; F41.1 Generalized anxiety disorder; F33.41 Major depressive disorder, recurrent, in partial remission; Z59.02 Unsheltered homelessness
CPT/HCPCS: 36415; 80053; 82306; 83721; 84443; 85025; 96127; 99212

== ENCOUNTER 2024-04-21 09:19 | Outpatient (AMB) | payer OTHER, SELFPAY ==
[2024-04-21 09:20] VITALS: BP 160/88; PULSE 100; O2SAT 94; BMI 21.8
--- NOTE | 2024-04-21 09:20 | A.OFFPC_ITS ---
Vital Signs 04/21/24 09:20 Height 5 ft 2 in Weight 119 lb BMI 21.8 BP 160/88 H Blood Pressure Location Rt brachial Position Sitting Pulse 100 Pulse Source Pulse Oximeter Pulse Oximetry (%) 94 Oxygen Delivery Method Room Air Intake Visit Reasons: Overdue F/U Allergies No Known Allergies Allergy (Verified 04/21/24 09:20) Medication List - Last Reconciled 04/21/24 by Roly Rivera MD albuterol sulfate 90 mcg/actuation (ProAir HFA) 1 inh inhalation QID PRN 30 days budesonide-formoterol 80-4.5 mcg/actuation (Symbicort) 1 inh inhalation BID 90 days escitalopram oxalate (Lexapro) 5 mg PO DAILY 90 days meloxicam 15 mg PO DAILY multivitamin 1 tab PO DAILY 90 days Tobacco use date assessed: 04/21/24 Dental Screening Dental Screen Date: 04/21/24 Did you have a dental visit in the last 12 months?: Yes Did you have a dental problem in the last 6 months where you did not have access to dental care?: No Was dental information given to patient?: Patient has dentist HPI Overdue F/U HPI Details Patient is a 58-year-old female who was last seen in 2021 Patient was not able to come in after that due to several reasons that she is explaining Currently she is overwhelmed and is feeling very emotional She is requesting a medication for anxiety, I did prescribe Lexapro 5 mg when I saw her in 2021 which she never took She is requesting a letter so she can keep her dog as therapy PET, letter was provided to patient Her blood pressure is elevated today as well, as she ran out of amlodipine 5 mg Patient also suffers from COPD and continued to smoke, requesting a refill on albuterol inhaler which was sent as well I have ordered labs for the patient to be done today She is to return in couple of weeks for follow-up appointment Patient met with our behavior health coordinator today as well COUNTS INCLUDE 234 BEDS AT THE [facility] Medical History Subcutaneous mass Major depression, recurrent History of tobacco abuse Social History Housing: Apartment Patient Tobacco Use Status: Former Tobacco user Tobacco use type: Cigarette Years Smoked: 5 years e-Cigarette/Vaping Use: Never Used service: No Current occupational status: unemployed Cognitive needs: No Hearing needs: No Vision needs: No Questionnaire Thrive Questionnaire Date Thrive assessed: 04/21/24 I am a: Patient What is your living situation today?: I have a steady place to live Within the past 12 months, did the food you bought not last and you didn't have the money to get more?: Never true Within the past 12 months, did you worry whether your food would run out before you got money to buy more?: Never true Do you have trouble paying for medicines?: No Do you have trouble getting transportation to medical appointments?: No Do you have trouble paying your heating and electricity bill?: No Do you have trouble taking care of your child, family member or friend?: No Do you have trouble with day-to-day activities such as bathing, preparing meals, shopping, managing finances, etc.?: No Are you currently unemployed and looking for a job?: No Are you interested in more education?: No Please select the resources that you would like help with: None Currently or been in a relationship where the following occur: No concerns reported THRIVE Score: 0 AUDIT C Alcohol Use Questionnaire (AUDIT-C) 1. How often do you have a drink containing alcohol?: Never 3. How often do you have six or more drinks on one occasion?: Never Total Score: 0 Score Reviewed/Action Taken: Yes MARQUES-7 AMB Questionnaire MARQUES-7 Date MARQUES - 7 assessed: 04/21/24 Feeling nervous, anxious, or on edge: 0 = Not at all Not being able to stop or control worryin = Not at all Worrying too much about different things: 0 = Not at all Trouble relaxin = Not at all Being so restless that it is hard to sit still: 0 = Not at all Becoming easily annoyed or irritable: 0 = Not at all Feeling afraid as if something awful might happen: 0 = Not at all Total MARQUES-7 score (0-4 normal; 5-9 mild; 10-14 moderate; 15-21 severe): 0 Source: Developed by Drs. Power Li, Isa Toribio, Daljit Oviedo and colleagues, with an educational masood from [employer]. MARQUES-7 Assessment Billing MARQUES-7 Assessment Tool: MARQUES-7 Assessment 04750 Review of Systems Const Denies chills and Denies fever(s) ENT Denies epistaxis and Denies nasal discharge Card Denies chest pain Resp Denies chest congestion, Denies cough and Denies hemoptysis GI Denies diarrhea and Denies nausea Skin/Breast Denies rash Neuro Reports no additional complaints Psych Reports no additional complaints Endo Reports no additional complaints Physical exam (Primary Care) Vital Signs: Last Vital Signs Pulse 100 04/21/24 09:20 BP 160/88 H 04/21/24 09:20 Pulse Ox 94 04/21/24 09:20 Oxygen Delivery Method Room Air 04/21/24 09:20 BMI result Body Mass Index 21.8 Tobacco/Smoking Status: Tobacco use Status Tobacco use date assessed 04/21/24 04/21/24 09:23 Patient Tobacco Use Status Former Tobacco user 04/21/24 09:23 Tobacco use type Cigarette 04/21/24 09:23 e-Cigarette/Vaping Use Never Used 04/21/24 09:23 Thrive Assessment: Date of Thrive Assessment Date Thrive assessed 04/21/24 04/21/24 09:23 Currently or been in a relationship where the following occur: No concerns reported Const General: cooperative, comfortable and no acute distress Orientation/consciousness: patient oriented x3 HENMT Head: Yes normocephalic Eyes General: appearance normal, both eyes and all related structures Neck Neck: Yes supple Resp Effort & Inspection: normal respiratory effort, no cough and no stridor Cardio Rhythm: regular rhythm Heart sounds: S1 normal heart sound present and S2 normal heart sound present Skin General skin exam: turgor normal Neuro General: patient oriented x3, tone normal and moves all extremities Extrem Right lower extremity: no edema Left lower extremity: no edema Coding Level of Care Code Est Pt Level 4 (07221) Complex EM visit Add On G2211 Diagnoses Chronic obstructive pulmonary disease, unspecified COPD type J44.9 COPD type: unspecified COPD Hypertension, essential I10 Anxiety, generalized F41.1 Recurrent major depressive disorder, in partial remission F33.41 Active/Remission status: in partial remission Additional Codes MARQUES-7 Assessment Billing - MARQUES-7 Assessment Tool: MARQUES-7 Assessment 93585 ([id number]) Assessment & Plan Assessment & Plan (1) COPD (chronic obstructive pulmonary disease): Code(s): J44.9 - Chronic obstructive pulmonary disease, unspecified Category: Medical Qualifiers: COPD type: unspecified COPD Qualified Code(s): J44.9 - Chronic obstructive pulmonary disease, unspecified (2) Hypertension, essential: Code(s): I10 - Essential (primary) hypertension Category: Medical (3) Anxiety, generalized: Code(s): F41.1 - Generalized anxiety disorder Category: Medical (4) Major depression, recurrent: Code(s): F33.9 - Major depressive disorder, recurrent, unspecified Category: Medical Qualifiers: Active/Remission status: in partial remission Qualified Code(s): F33.41 - Major depressive disorder, recurrent, in partial remission Plan Patient is a 58-year-old female who was last seen in 2021 Patient was not able to come in after that due to several reasons that she is explaining Currently she is overwhelmed and is feeling very emotional She is requesting a medication for anxiety, I did prescribe Lexapro 5 mg when I saw her in 2021 which she never took She is requesting a letter so she can keep her dog as therapy PET, letter was provided to patient Her blood pressure is elevated today as well, as she ran out of amlodipine 5 mg Patient also suffers from COPD and continued to smoke, requesting a refill on albuterol inhaler which was sent as well I have ordered labs for the patient to be done today She is to return in couple of weeks for follow-up appointment Patient met with our behavior health coordinator today as well Orders: Orders Complete Blood Count Auto Diff Today F33.9 - Major depressive disorder, recurrent, unspecified, F41.1 - Generalized anxiety disorder, I10 - Essential (primary) hypertension, J44.9 - Chronic obstructive pulmonary disease, unspec ified Comprehensive Met. Panel Today F33.9 - Major depressive disorder, recurrent, unspecified, F41.1 - Generalized anxiety disorder, I10 - Essential (primary) hypertension, J44.9 - Chronic obstructive pulmonary disease, unspecified LDL Cholesterol Direct Today F33.9 - Major depressive disorder, recurrent, unspecified, F41.1 - Generalized anxiety disorder, I10 - Essential (primary) hypertension, J44.9 - Chronic obstructive pulmonary disease, unspecified TSH reflex Free T4 Today F33.9 - Major depressive disorder, recurrent, unspecified, F41.1 - Generalized anxiety disorder, I10 - Essential (primary) hypertension, J44.9 - Chronic obstructive pulmonary disease, unspecified Vitamin D 25-OH (D2 and D3) Today F33.9 - Major depressive disorder, recurrent, unspecified, F41.1 - Generalized anxiety disorder, I10 - Essential (primary) hypertension, J44.9 - Chronic obstructive pulmonary disease, unspecified Medications: New amlodipine 5 mg PO DAILY 90 tabs 0RF Changed From albuterol sulfate 90 mcg/actuation (ProAir HFA) 1 inh inhalation QID 30 days PRN 18 grams 0RF shortness of breath or wheezing To albuterol sulfate 90 mcg/actuation 1 inh inhalation QID 30 days PRN 18 grams 0RF shortness of breath or wheezing Refilled budesonide-formoterol 80-4.5 mcg/actuation (Symbicort) 1 inh inhalation BID 90 days 3 multiple units 1RF escitalopram oxalate (Lexapro) 5 mg PO DAILY 90 days 90 tabs 0RF
== END 2024-04-21 09:59 | disposition home or self-care (01) ==
PROVIDERS: PCP Internal Medicine; Visit Provider Internal Medicine
DX: J44.9 Chronic obstructive pulmonary disease, unspecified (principal); I10 Essential (primary) hypertension; F41.1 Generalized anxiety disorder; F33.41 Major depressive disorder, recurrent, in partial remission

== ENCOUNTER 2024-05-05 09:11 | Outpatient (AMB) | payer OTHER, SELFPAY ==
[2024-05-05 09:16] VITALS: BP 148/84; PULSE 86; O2SAT 96; BMI 21.4
--- NOTE | 2024-05-05 09:16 | A.OFFPC_ITS ---
Vital Signs 05/05/24 09:16 Height 5 ft 2 in Weight 117 lb 2 oz BMI 21.4 BP 148/84 H Blood Pressure Location Lt brachial Position Sitting Pulse 86 Pulse Source Pulse Oximeter Pulse Oximetry (%) 96 Oxygen Delivery Method Room Air Intake Visit Reasons: 2 week f/u Allergies No Known Allergies Allergy (Verified 04/21/24 09:20) Medication List - Last Reconciled 05/05/24 by Roly Rivera MD albuterol sulfate 90 mcg/actuation 1 inh inhalation QID PRN 30 days amlodipine 5 mg PO DAILY budesonide-formoterol 80-4.5 mcg/actuation (Symbicort) 1 inh inhalation BID 90 days escitalopram oxalate (Lexapro) 5 mg PO DAILY 90 days meloxicam 15 mg PO DAILY multivitamin 1 tab PO DAILY 90 days Tobacco use date assessed: 04/21/24 Dental Screening Dental Screen Date: 04/21/24 HPI 2 week f/u HPI Details Chief Complaint The patient seeks assistance with medication management and requires a physical exam for work purposes. In near future Assessment and Plan 58-year-old female with a history of hyp ertension, vitamin-D deficiency, Major Depressive Disorder and Chronic Obstructive Pulmonary Disease (COPD) presenting with ongoing medication management needs. The patient's depression seems to have improved on 5 mg of Lexapro, with a reduction in emotional distress. COPD management includes use of maintenance and rescue inhalers, and a decrease in shortness of breath is noted, although she still experiences mild symptoms. The patient's blood pressure remains elevated despite current antihypertensive therapy. A recent lab review indicates vitamin D deficiency, necessitating supplementation. 1. Vitamin D Deficiency A prescription for vitamin D supplementation will be sent to the patient's pharmacy for daily intake. The patient's insurance coverage will determine accessibility. 2. Chronic Obstructive Pulmonary Disease Copd COPD management involves daily use of the maintenance inhaler, Symbicort, twice daily, with necessary mouth rinsing, and the red rescue inhaler as needed for acute shortness of breath. An additional inhaler, Spiriva, will be prescribed to aid in symptom control pending insurance approval. 3. Essential Hypertension The patient's antihypertensive medication, Amlodipine, will be increased from 5 mg to 10 mg daily due to persistently high blood pressure readings. 4. Major Depressive Disorder The current dose of Lexapro was increased from 5 mg to 10 mg daily due to its initial efficacy in alleviating symptoms. The patient will continue this dosage and is allowed to finish the existing supply by doubling up until completion. 5. 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 - Use Symbicort twice daily as maintenan ce; remember to rinse mouth after each use. - Use the red inhaler (rescue) for acute shortness of breath. - Begin using Spiriva as prescribed upon insurance approval. - Increase Amlodipine to 10 mg daily for blood pressure management. - Take vitamin D supplementation daily a s prescribed. - Schedule and attend the physical exami nation required for work. - Keep a digital and physical copy of th e letter regarding your service dog for accessibility purposes. PFSH Medical History Subcutaneous mass Major depression, recurrent History of tobacco abuse Social History Housing: Apartment Patient Tobacco Use Status: Former Tobacco user Tobacco use type: Cigarette Years Smoked: 5 years e-Cigarette/Vaping Use: Never Used service: No Current occupational status: unemployed Cognitive needs: No Hearing needs: No Vision needs: No Questionnaire PHQ-9 Over the last 2 weeks, how often have you been bothered by any of the following problems? 1. Little interest or pleasure in doing things: not at all 2. Feeling down, depressed, or hopeless: several days 3. Trouble falling or staying asleep, or sleeping too much: nearly every day 4. Feeling tired or having little energy: nearly every day 5. Poor appetite or overeating: nearly every day 6. Feeling bad about yourself - or that you are a failure or have let yourself or your family down: nearly every day 7. Trouble concentrating on things, such as reading the newspaper or watching television: not at all 8. Moving or speaking so slowly that other people could have noticed. Or the opposite - being so fidgety or restless that you have been moving around a lot more than usual: not at all 9. Thoughts that you would be better off or of hurting yourself in some way: not at all Total score: 13 Depression Screening Interpretation: Positive Depression Screening Follow-up: Existing condition and In treatment Depression Screening Done: Yes 63170 - PHQ-9 Billing: Yes Source: Developed by Drs. Power Li, Isa Toribio, Daljit Oviedo and colleagues, with an educational masood from [employer]. Thrive Questionnaire Date Thrive assessed: 04/21/24 I am a: Patient What is your living situation today?: I do not have a steady places to live I am living on the [address] Within the past 12 months, did the food you bought not last and you didn't have the money to get more?: Sometimes True Within the past 12 months, did you worry whether your food would run out before you got money to buy more?: Sometimes True Do you have trouble paying for medicines?: No Do you have trouble getting transportation to medical appointments?: No Do you have trouble paying your heating and electricity bill?: I choose not to answer this question Do you have trouble taking care of your child, family member or friend?: I choose not to answer this question Do you have trouble with day-to-day activities such as bathing, preparing meals, shopping, managing finances, etc.?: No Are you currently unemployed and looking for a job?: No Are you interested in more education?: No Please select the resources that you would like help with: Housing/Halfway Currently or been in a relationship where the following occur: I choose not to answer THRIVE Score: 3 AUDIT C Alcohol Use Questionnaire (AUDIT-C) 1. How often do you have a drink containing alcohol?: Never Total Score: 0 MARQUES-7 AMB Questionnaire MARQUES-7 Date MARQUES - 7 assessed: 04/21/24 Feeling nervous, anxious, or on edge: 1 = Several days Not being able to stop or control worryin = Several days Worrying too much about different things: 1 = Several days Trouble relaxin = Several days Being so restless that it is hard to sit still: 0 = Not at all Becoming easily annoyed or irritable: 1 = Several days Feeling afraid as if something awful might happen: 0 = Not at all Total MARQUES-7 score (0-4 normal; 5-9 mild; 10-14 moderate; 15-21 severe): 5 Source: Developed by Drs. Power Li, Isa Toribio, Daljit Oviedo and colleagues, with an educational masood from [employer]. Review of Systems Const Denies chills and Denies fever(s) ENT Denies epistaxis and Denies nasal discharge Card Denies chest pain Resp Denies chest congestion and Denies hemoptysis GI Denies diarrhea and Denies nausea Skin/Breast Denies rash Neuro Reports no additional complaints Psych Reports no additional complaints Endo Reports no additional complaints Physical exam (Primary Care) Vital Signs: Last Vital Signs Pulse 86 05/05/24 09:16 BP 148/84 H 05/05/24 09:16 Pulse Ox 96 05/05/24 09:16 Oxygen Delivery Method Room Air 05/05/24 09:16 BMI result Body Mass Index 21.4 Tobacco/Smoking Status: Tobacco use Status Tobacco use date assessed 04/21/24 05/05/24 09:20 Patient Tobacco Use Status Former Tobacco user 05/05/24 09:20 Tobacco use type Cigarette 05/05/24 09:20 e-Cigarette/Vaping Use Never Used 05/05/24 09:20 Depression Screening Interpretation: Positive Depression Screening Follow-up: Existing condition and In treatment Thrive Assessment: Date of Thrive Assessment Date Thrive assessed 04/21/24 05/05/24 09:20 Currently or been in a relationship where the following occur: I choose not to answer Const General: cooperative, comfortable and no acute distress Orientation/consciousness: patient oriented x3 HENMT Head: Yes normocephalic Eyes General: appearance normal, both eyes and all related structures Neck Neck: Yes supple Resp Other: Able to speak in full sentences however seems to be in mild respiratory distress which is baseline for her, pulse ox is 96% on room air Effort & Inspection: no cough and no stridor Cardio Rhythm: regular rhythm Heart sounds: S1 normal heart sound present and S2 normal heart sound present Skin General skin exam: turgor normal Neuro General: patient oriented x3, tone normal and moves all extremities Extrem Right lower extremity: no edema Left lower extremity: no edema Coding Level of Care Code Est Pt Level 4 (88127) Complex EM visit Add On G2211 Diagnoses Hypertension, essential I10 Anxiety, generalized F41.1 Chronic obstructive pulmonary disease, unspecified COPD type J44.9 COPD type: unspecified COPD Shortness of breath R06.02 Additional Codes PHQ-9 - 08553 - PHQ-9 Billing: Yes ([id number]) Assessment & Plan Assessment & Plan (1) Hypertension, essential: Code(s): I10 - Essential (primary) hypertension Category: Medical (2) Anxiety, generalized: Code(s): F41.1 - Generalized anxiety disorder Category: Medical (3) COPD (chronic obstructive pulmonary disease): Code(s): J44.9 - Chronic obstructive pulmonary disease, unspecified Category: Medical Qualifiers: COPD type: unspecified COPD Qualified Code(s): J44.9 - Chronic obstructive pulmonary disease, unspecified (4) Shortness of breath: Code(s): R06.02 - Shortness of breath Category: Medical Plan Chief Complaint The patient seeks assistance with medication management and requires a physical exam for work purposes. In near future Assessment and Plan 58-year-old female with a history of hypertension, vitamin-D deficiency, Major Depressive Disorder and Chronic Obstructive Pulmonary Disease (COPD) presenting with ongoing medication management needs. The patient's depression seems to have improved on 5 mg of Lexapro, with a reduction in emotional distress. COPD management includes use of maintenance and rescue inhalers, and a decrease in shortness of breath is noted, although she still experiences mild symptoms. The patient's blood pressure remains elevated despite current antihypertensive therapy. A recent lab review indicates vitamin D deficiency, necessitating supplementation. 1. Vitamin D Deficiency A prescription for vitamin D supplementation will be sent to the patient's pharmacy for daily intake. The patient's insurance coverage will determine accessibility. 2. Chronic Obstructive Pulmonary Disease Copd COPD management involves daily use of the maintenance inhaler, Symbicort, twice daily, with necessary mouth rinsing, and the red rescue inhaler as needed for acute shortness of breath. An additional inhaler, Spiriva, will be prescribed to aid in symptom control pending insurance approval. 3. Essential Hypertension The patient's antihypertensive medication, Amlodipine, will be increased from 5 mg to 10 mg daily due to persistently high blood pressure readings. 4. Major Depressive Disorder The current dose of Lexapro was increased from 5 mg to 10 mg daily due to its initial efficacy in alleviating symptoms. The patient will continue this dosage and is allowed to finish the existing supply by doubling up until completion. 5. 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 - Use Symbicort twice daily as maintenance; remember to rinse mouth after each use. - Use the red inhaler (rescue) for acute shortness of breath. - Begin using Spiriva as prescribed upon insurance approval. - Increase Amlodipine to 10 mg daily for blood pressure management. - Take vitamin D supplementation daily as prescribed. - Schedule and attend the physical examination required for work. - Keep a digital and physical copy of the letter regarding your service dog for accessibility purposes. Medications: New cholecalciferol (vitamin D3) 25 mcg PO DAILY 90 caps 1RF 90 days tiotropium bromide (Spiriva with [employer]) puncture 1 cap using device; one dose = 2 inhalations 1 cap inhalation DAILY 90 inhalations 0RF 90 days Changed From escitalopram oxalate (Lexapro) 5 mg PO DAILY 90 days 90 tabs 0RF To escitalopram oxalate 10 mg PO DAILY 90 tabs 0RF 90 days From amlodipine 5 mg PO DAILY 90 tabs 0RF To amlodipine 10 mg PO DAILY 90 tabs 0RF Refilled multivitamin 1 tab PO DAILY 90 tabs 3RF 90 days albuterol sulfate 90 mcg/actuation 1 inh inhalation QID PRN 18 grams 5RF shortness of breath or wheezing 30 days
== END 2024-05-05 09:47 | disposition home or self-care (01) ==
PROVIDERS: PCP Internal Medicine; Visit Provider Internal Medicine
DX: I10 Essential (primary) hypertension (principal); F41.1 Generalized anxiety disorder; J44.9 Chronic obstructive pulmonary disease, unspecified; R06.02 Shortness of breath

== ENCOUNTER → 2024-05-05 09:11 | Outpatient (BNVA) | payer OTHER, SELFPAY | PROVIDERS: PCP Internal Medicine; Visit Provider Internal Medicine | DX: I10 Essential (primary) hypertension (principal); F41.1 Generalized anxiety disorder; J44.9 Chronic obstructive pulmonary disease, unspecified; R06.02 Shortness of breath | CPT/HCPCS: 96127; 99212 ==

== ENCOUNTER 2024-05-13 15:11 | Outpatient (AMB) | payer OTHER, SELFPAY ==
--- NOTE | 2024-05-13 15:36 | MHC.OFFWIV ---
Intake Vital Signs 05/13/24 15:39 Height 5 ft 2 in Weight 119 lb BMI 21.8 BP 150/90 H Blood Pressure Location Lt brachial Position Sitting Pulse 62 Pulse Source Pulse Oximeter Temp 98.3 F Temp Source Oral Pulse Oximetry (%) 91 L Oxygen Delivery Method Room Air Intake Visit Reasons: EP Cough, congestion/mucus Intake Note: Patient here for cough, congestion and headache that has been present for about 1 week. Patient Tobacco Use Status: Former Tobacco user Allergies No Known Allergies Allergy (Verified 05/13/24 15:49) Do you need a note to return to daycare/school/sports/work: Yes HPI EP Cough, congestion/mucus HPI Details This note is constructed using voice recognition software. While every effort has been made to ensure accuracy, content production specialist errors may have been included. The patient is a 58 year old female who presents to the clinic today with cough, congestion for the past week. She works in a school, and has had multiple sick exposures, started off with a cough and congestion, has been taking Mucinex which somewhat helps but is not completely resolving the symptoms. She notes some decrease in energy level, and has been having some mild frontal headaches. She denies fever, chills, shortness of breath. PFSH Medical History Subcutaneous mass Major depression, recurrent History of tobacco abuse Social History Housing: Apartment Patient Tobacco Use Status: Former Tobacco user Tobacco use type: Cigarette Years Smoked: 5 years e-Cigarette/Vaping Use: Never Used service: No Current occupational status: unemployed Cognitive needs: No Hearing needs: No Vision needs: No Review of Systems Const All systems reviewed & are unremarkable except as noted in HPI and below Physical Exam Vital Signs: Last Vital Signs Temp 98.3 F 05/13/24 15:39 Pulse 62 05/13/24 15:39 BP 150/90 H 05/13/24 15:39 Pulse Ox 91 L 05/13/24 15:39 Oxygen Delivery Method Room Air 05/13/24 15:39 BMI result Body Mass Index 21.8 Const General: cooperative, healthy appearing, comfortable and no acute distress Orientation/consciousness: patient oriented x3 Limitations: no limitations HEENT Head: Yes normal to inspection Ears: hearing grossly normal bilaterally, external ears normal and TM's normal bilaterally General nose exam: Normal external nose present, Normal nares present and No nasal discharge present Face and sinus: Yes normal facial exam and Yes sinuses nontender Mouth: Normal oral and palatal mucosa present and moist mucous membranes Throat: Yes tonsils normal, Yes uvula midline and Yes posterior oropharynx abnormal (Erythema) Eyes General: appearance normal, both eyes and all related structures Neck Neck: Yes normal visual inspection Resp Effort & Inspection: normal respiratory effort, able to speak in complete sentences, Actively coughing, no respiratory distress, not tachypneic, no tripod positioning and no use of accessory muscles Auscultation: diminished lung sounds Cardio Jugular venous distension: no JVD Rate: regular rate Rhythm: regular rhythm Heart sounds: S1 normal heart sound present, S2 normal heart sound present, no click, no gallops, no murmurs and no rubs Skin General skin exam: no rashes or lesions noted, elasticity normal and turgor normal Neuro General: patient oriented x3 Extrem General: Yes normal to inspection and Yes no clubbing, cyanosis or edema Assessment & Plan Assessment & Plan (1) Pneumonia: Code(s): J18.9 - Pneumonia, unspecified organism Qualifiers: Pneumonia type: due to unspecified organism Laterality: unspecified laterality Lung location: unspecified part of lung Qualified Code(s): J18.9 - Pneumonia, unspecified organism Plan: Antibiotics sent to requested pharmacy. Advised patient to continue with her albuterol inhaler and in inhalers as prescribed by her PCP. Viral swab obtained to rule out Covid, Influenza, and RSV based on symptoms. Advised mask wearing while symptomatic and quarantine per current CDC guidelines. Reviewed at home support methods including hydration, humidification, vix vapor rub, sinus rinse, and otc treatment options. Advised follow up with worsening symptoms such as dyspnea at rest, which would require emergent evaluation. Plan See above for full details and plan. Medications: New benzonatate 100 mg PO TID 5 days PRN 15 caps 0RF Cough amoxicillin-pot clavulanate 875-125 mg 1 tab PO BID 10 days 20 tabs 0RF Coding Level of Care Code Est Pt Level 3 (04089) Diagnoses Pneumonia due to infectious organism, unspecified laterality, unspecified part of lung J18.9 Pneumonia type: due to unspecified organism Laterality: unspecified laterality Lung location: unspecified part of lung
[2024-05-13 15:39] VITALS: BP 150/90; PULSE 62; TEMP 36.8; O2SAT 91; BMI 21.8
== END 2024-05-13 16:26 | disposition home or self-care (01) ==
PROVIDERS: PCP Internal Medicine; Visit Provider Registered Nurse
DX: J18.9 Pneumonia, unspecified organism (principal)

== ENCOUNTER 2024-05-13 15:11 | Outpatient (REF) | payer OTHER, SELFPAY ==
[2024-05-14 12:18] LABS: Influenza A PCR NEGATIVE (Negative); Influenza B PCR NEGATIVE (Negative); Resp Syncy Virus RNA Qual PCR NEGATIVE (Negative); SARS COV2 PCR INHOUSE NEGATIVE (Negative)
== END 2024-05-13 15:12 | disposition home or self-care (01) ==
LOC: HO.LNP 15:11
PROVIDERS: PCP Internal Medicine; Visit Provider Registered Nurse
DX: J18.9 Pneumonia, unspecified organism (principal); J06.9 Acute upper respiratory infection, unspecified
CPT/HCPCS: 0241U; 99212

== ENCOUNTER 2024-09-11 11:01 | Outpatient (REF) | payer OTHER, SELFPAY ==
--- NOTE | ~2024-09-11 | XR_ITS ---
EXAMINATION: XR CHEST 2 VIEWS HISTORY: R09.89 - Other specified symptoms and signs involving the circulatory an... COMPARISON: There are no prior studies for comparison. FINDINGS: PA and lateral views of the chest are submitted. The lungs are expanded and clear. There is no pleural effusion, pneumothorax, or pulmonary vascular congestion. The heart is normal in size. There are multiple old healed left rib fractures. There is mild degenerative disc disease of the spine. XR/XR chest 2V IMPRESSION: Clear lungs. Electronically signed by: Power Bloom MD 09/11/2024 03:02 PM EDT
--- OUTSIDE RECORDS SUMMARY | 2024-09-11 13:22 | XMS_ITS | Clinical Summary ---
Author Organization [facility] it Address [address] [place] [address] Care Team Providers Care Open Tenter Operator Name Role Phone Unavailable Primary Care [...]
== END 2024-09-11 11:02 | disposition home or self-care (01) ==
LOC: HO.HMGCX 11:01
PROVIDERS: PCP Internal Medicine; Visit Provider Internal Medicine
DX: R06.02 Shortness of breath (principal); J44.1 Chronic obstructive pulmonary disease with (acute) exacerbation; R09.89 Other specified symptoms and signs involving the circulatory and respiratory systems; K64.9 Unspecified hemorrhoids; I10 Essential (primary) hypertension; F33.41 Major depressive disorder, recurrent, in partial remission
CPT/HCPCS: 71046; 96127; 99212

== ENCOUNTER 2024-09-11 11:01 | Outpatient (AMB) | payer OTHER, SELFPAY ==
[2024-09-11 11:02] VITALS: BP 146/82; PULSE 102; RESP 18; TEMP 36.8; O2SAT 98; BMI 20.7
--- NOTE | 2024-09-11 11:02 | A.OFFPC_ITS ---
Vital Signs 09/11/24 11:02 Height 5 ft 2 in Weight 113 lb 6 oz BMI 20.7 BP 146/82 H Blood Pressure Location Rt brachial Position Sitting Respiration 18 Pulse 102 H Pulse Source Pulse Oximeter Temp 98.2 F Temp Source Oral Pulse Oximetry (%) 98 Oxygen Delivery Method Room Air Intake Visit Reasons: Hemorrhoids/Insurance OK Allergies No Known Allergies Allergy (Verified 09/11/24 11:03) Medication List - Last Reconciled 09/11/24 by Roly Rivera MD albuterol sulfate 90 mcg/actuation 1 inh inhalation QID PRN 30 days amlodipine 10 mg PO DAILY budesonide-formoterol 80-4.5 mcg/actuation (Symbicort) 1 inh inhalation BID 90 days cholecalciferol (vitamin D3) 25 mcg PO DAILY 90 days escitalopram oxalate 10 mg PO DAILY 90 days meloxicam 15 mg PO DAILY multivitamin 1 tab PO DAILY 90 days tiotropium bromide (Spiriva with HandiHaler) 1 cap inhalation DAILY 90 days Tobacco use date assessed: 09/11/24 Dental Screening Dental Screen Date: 09/11/24 Did you have a dental visit in the last 12 months?: No Did you have a dental problem in the last 6 months where you did not have access to dental care?: No Was dental information given to patient?: No HPI Hemorrhoids/Insurance OK HPI Details History - The patient is a 59-year-old female pr esenting with hemorrhoids. And COPD exacerbation - Reports suffering from hemorrhoids for approximately one year, initially resolving but now worsening and persistent. - She experiences pain, bleeding, and si tting difficulties, impacting her ability to carry out regular activities. Respiratory symptoms has been going on for the past few days with chest congestion and phlegm production Has been feeling more short of breath, ran out of her inhalers, tells me that she does not have financial stability at this time as she lost her job - Denies fever or chills during the illn ess. - Reports chronic mild shortness of mykel th, exacerbated recently and possibly linked to respiratory issues. Problem List - Hemorrhoids - Upper Respiratory Tract Infection - Shortness of Breath - Employment Issues (socioeconomic facto rs impacting health management) - COPD exacerbation - hypertension with elevated blood press ure today Patient Instructions - Follow the prescribed antibiotic and s teroid course as directed. Start inhalers promptly - Use a donut cushion to alleviate disco mfort when sitting. - Consider scheduling a consultation for hemorrhoid surgery. Referral placed to Dr. Ortega - Check insurance coverage for prescript ion medication, including Spiriva inhaler. - Monitor symptoms and seek immediate ca re if experiencing worsening breathlessness or other concerning symptoms. - start blood pressure medication tre stein Review of Systems - General: No fever no chills - Neurological: No headaches no dizziness - Ear nose throat: No sore throat no hearing difficulty no ear pain - Cardiovascular: No syncope, no chest pain, no palpitations - Gastrointestinal: No nausea vomiting or diarrhea - Endocrine: No polyuria polydipsia no heat intolerance - Genitourinary: No dysuria , no blood in urine Physical Exam General: No acute distress HEENT: No acute findings Neck: Supple Respiratory system: Able to talk in full sentences, no audible wheeze, slight shortness of breath Cardiovascular: S1-S2 regular in rate and rhythm Gastrointestinal/rectal exam: Large hemorrhoids present, firm to touch Extremities: No new findings TRAINING COORDINATOR: Alert awake oriented x3 motor sensory intact Skin: Normal turgor [facility] Medical History Subcutaneous mass Major depression, recurrent History of tobacco abuse Social History Housing: Apartment Patient Tobacco Use Status: Former Tobacco user Tobacco use type: Cigarette Years Smoked: 5 years e-Cigarette/Vaping Use: Never Used service: No Current occupational status: unemployed Cognitive needs: No Hearing needs: No Vision needs: No Questionnaire PHQ-9 Over the last 2 weeks, how often have you been bothered by any of the following problems? 1. Little interest or pleasure in doing things: nearly every day 2. Feeling down, depressed, or hopeless: nearly every day 3. Trouble falling or staying asleep, or sleeping too much: nearly every day 4. Feeling tired or having little energy: nearly every day 5. Poor appetite or overeating: nearly every day 6. Feeling bad about yourself - or that you are a failure or have let yourself or your family down: nearly every day 7. Trouble concentrating on things, such as reading the newspaper or watching television: not at all 8. Moving or speaking so slowly that other people could have noticed. Or the opposite - being so fidgety or restless that you have been moving around a lot more than usual: not at all 9. Thoughts that you would be better off or of hurting yourself in some way: not at all Total score: 18 Depression Screening Interpretation: Positive Depression Screening Follow-up: Existing condition and Follow-up Visit Requested Depression Screening Done: Yes 31167 - PHQ-9 Billing: Yes Source: Developed by Drs. Power Li, Isa Toribio, Daljit Oviedo and colleagues, with an educational masood from [employer]. Thrive Questionnaire Date Thrive assessed: 09/11/24 I am a: Patient What is your living situation today?: I do not have a steady places to live I am living on the [address] Within the past 12 months, did the food you bought not last and you didn't have the money to get more?: Sometimes True Within the past 12 months, did you worry whether your food would run out before you got money to buy more?: Sometimes True Do you have trouble paying for medicines?: No Do you have trouble getting transportation to medical appointments?: Yes Do you have trouble paying your heating and electricity bill?: No Do you have trouble taking care of your child, family member or friend?: No Do you have trouble with day-to-day activities such as bathing, preparing meals, shopping, managing finances, etc.?: No Are you currently unemployed and looking for a job?: Yes Are you interested in more education?: Yes Please select the resources that you would like help with: Housing/Long Term Currently or been in a relationship where the following occur: I choose not to answer THRIVE Score: 4 AUDIT C Alcohol Use Questionnaire (AUDIT-C) 1. How often do you have a drink containing alcohol?: Never 3. How often do you have six or more drinks on one occasion?: Never Total Score: 0 Score Reviewed/Action Taken: Yes MARQUES-7 AMB Questionnaire MARQUES-7 Date MARQUES - 7 assessed: 09/11/24 Feeling nervous, anxious, or on edge: 0 = Not at all Not being able to stop or control worryin = Not at all Worrying too much about different things: 0 = Not at all Trouble relaxin = Not at all Being so restless that it is hard to sit still: 0 = Not at all Becoming easily annoyed or irritable: 0 = Not at all Feeling afraid as if something awful might happen: 0 = Not at all Total MARQUES-7 score (0-4 normal; 5-9 mild; 10-14 moderate; 15-21 severe): 0 Source: Developed by Drs. Power Li, Isa Toribio, Daljit Oviedo and colleagues, with an educational masood from [employer]. MARQUES-7 Assessment Billing MARQUES-7 Assessment Tool: MARQUES-7 Assessment 97324 Physical exam (Primary Care) Vital Signs: Last Vital Signs Temp 98.2 F 09/11/24 11:02 Pulse 102 H 09/11/24 11:02 Resp 18 09/11/24 11:02 BP 146/82 H 09/11/24 11:02 Pulse Ox 98 09/11/24 11:02 Oxygen Delivery Method Room Air 09/11/24 11:02 BMI result Body Mass Index 20.7 Tobacco/Smoking Status: Tobacco use Status Tobacco use date assessed 09/11/24 09/11/24 11:04 Patient Tobacco Use Status Former Tobacco user 09/11/24 11:04 Tobacco use type Cigarette 09/11/24 11:04 e-Cigarette/Vaping Use Never Used 09/11/24 11:04 PHQ-9: PHQ-9 Score PHQ-9: Total score 18 09/11/24 11:24 Depression Screening Interpretation: Positive Depression Screening Follow-up: Existing condition and Follow-up Visit Requested Thrive Assessment: Date of Thrive Assessment Date Thrive assessed 09/11/24 09/11/24 11:04 Currently or been in a relationship where the following occur: I choose not to answer Coding Level of Care Code Est Pt Level 4 (82607) Diagnoses Shortness of breath R06.02 COPD exacerbation J44.1 Chest congestion R09.89 Bleeding hemorrhoid K64.9 Hypertension, essential I10 Recurrent major depressive disorder, in partial remission F33.41 Active/Remission status: in partial remission Additional Codes MARQUES-7 Assessment Billing - MARQUES-7 Assessment Tool: MARQUES-7 Assessment 90313 ([id number]) PHQ-9 - 24764 - PHQ-9 Billing: Yes ([id number]) Assessment & Plan Assessment & Plan (1) Shortness of breath: Code(s): R06.02 - Shortness of breath Category: Medical (2) COPD exacerbation: Code(s): J44.1 - Chronic obstructive pulmonary disease with (acute) exacerbation Category: Medical (3) Chest congestion: Code(s): R09.89 - Other specified symptoms and signs involving the circulatory and respiratory systems Category: Medical (4) Bleeding hemorrhoid: Code(s): K64.9 - Unspecified hemorrhoids Category: Medical (5) Hypertension, essential: Code(s): I10 - Essential (primary) hypertension Category: Medical (6) Major depression, recurrent: Code(s): F33.9 - Major depressive disorder, recurrent, unspecified Category: Medical Qualifiers: Active/Remission status: in partial remission Qualified Code(s): F33.41 - Major depressive disorder, recurrent, in partial remission Plan History - The patient is a 59-year-old female presenting with hemorrhoids. And COPD exacerbation - Reports suffering from hemorrhoids for approximately one year, initially resolving but now worsening and persistent. - She experiences pain, bleeding, and sitting difficulties, impacting her ability to carry out regular activities. Respiratory symptoms has been going on for the past few days with chest congestion and phlegm production Has been feeling more short of breath, ran out of her inhalers, tells me that she does not have financial stability at this time as she lost her job - Denies fever or chills during the illness. - Reports chronic mild shortness of breath, exacerbated recently and possibly linked to respiratory issues. Problem List - Hemorrhoids - Upper Respiratory Tract Infection - Shortness of Breath - Employment Issues (socioeconomic factors impacting health management) - COPD exacerbation - hypertension with elevated blood pressure today Patient Instructions - Follow the prescribed antibiotic and steroid course as directed. Start inhalers promptly - Use a donut cushion to alleviate discomfort when sitting. - Consider scheduling a consultation for hemorrhoid surgery. Referral placed to Dr. Ortega - Check insurance coverage for prescription medication, including Spiriva inhaler. - Monitor symptoms and seek immediate care if experiencing worsening breathlessness or other concerning symptoms. - start blood pressure medication amlodipine Orders: Orders XR chest 2V Today J44.1 - Chronic obstructive pulmonary disease with (acute) exacerbation, R06.02 - Shortness of breath, R09.89 - Other specified symptoms and signs involving the circulatory and respiratory systems Referrals Colon & Rectal Referral K64.9 - Unspecified hemorrhoids Medications: New prednisone 10 mg PO DAILY 5 days 5 tabs 0RF [donut cushion] As directed 1 ea 0RF K64.9 - Unspecified hemorrhoids Refilled albuterol sulfate 90 mcg/actuation 1 inh inhalation QID 30 days PRN 18 grams 5RF shortness of breath or wheezing amlodipine 10 mg PO DAILY 90 tabs 0RF budesonide-formoterol 80-4.5 mcg/actuation (Symbicort) 1 inh inhalation BID 90 days 3 multiple units 1RF tiotropium bromide (Spiriva with HandiHaler) puncture 1 cap using device; one dose = 2 inhalations 1 cap inhalation DAILY 90 days 3 multiple units 3RF
--- OUTSIDE RECORDS SUMMARY | 2024-09-11 12:47 | XMS_ITS | Clinical Summary ---
Author Organization [facility] it Address [address] [place] [address] Care Team Providers Care Print Machine Operator Name Role Phone Unavailable Primary Care Provider Unavailabl e Social History Tobacco Use Types Packs/Day Years Used Date Smoking Tobacco: Never Assessed Comments Unknown Sex and Gender Information Value Date Recorded Sex Assigned at Not on file Legal Sex Female 1:39 PM EDT Gender Identity Not on file Sexual Orientation Not on file Plan of Treatment Health Maintenance Due Date Last Done Comments Breast Cancer Screening 1965 DTaP,Tdap,and Td Vaccines (1 - Tdap) 1984 Hepatitis B Vaccines (1 of 3 - 19+ 3-dose series) 1984 Cervical Cancer Screening: P ap Smear 1986 Pneumococcal Vaccine: 50+ Ye ars (1 of 1 - PCV) 2015 Zoster Vaccines (1 of 2) 2015 Colorectal Cancer Screening: Colonoscopy 01/10/2024 Depression Screening 01/10/2024 HIV Screening 01/10/2024 Hepatitis C Screening 01/10/2024 Social Influencers of Health Screening 01/10/2024 COVID-19 Vaccine ( - 2023-2 5 season) 2024 Influenza Vaccine (#1) 2024 RSV Immunization Adult Patie nts (1 - 1-dose 75+ series) 2040 HIB Vaccines Aged Out No longer eligi ble based on patient's age to complete this topic HPV Vaccines Aged Out No longer eligi ble based on patient's age to complete this topic Hepatitis A Vaccines Aged Out No long er eligible based on patient's age to complete this topic IPV Vaccines Aged Out No longer eligi ble based on patient's age to complete this topic MMR Vaccines Aged Out No longer eligi ble based on patient's age to complete this topic Meningococcal ACWY Vaccine Aged Out N o longer eligible based on patient's age to complete this topic Meningococcal B Vacine Aged Out No lo nger eligible based on patient's age to complete this topic Pneumococcal Vaccine: Pediat rics (0 to 5 Years) and At-Risk Patients (6 to 64 Years) Aged Out No longer eligible b ased on patient's age to complete this topic RSV Immunization Patients Un raissa 20 months Aged Out No longer eligible b ased on patient's age to complete this topic Varicella Vaccines Aged Out No longer eligible based on patient's age to complete this topic
== END 2024-09-11 12:35 | disposition home or self-care (01) ==
LOC: HO.HMCC 11:02
PROVIDERS: PCP Internal Medicine; Visit Provider Internal Medicine
DX: R06.02 Shortness of breath (principal); J44.1 Chronic obstructive pulmonary disease with (acute) exacerbation; R09.89 Other specified symptoms and signs involving the circulatory and respiratory systems; K64.9 Unspecified hemorrhoids; I10 Essential (primary) hypertension; F33.41 Major depressive disorder, recurrent, in partial remission

== ENCOUNTER → 2024-09-11 11:27 | Outpatient (BNV) | payer OTHER, SELFPAY | PROVIDERS: PCP Internal Medicine; Visit Provider Radiology Diagnostic Radiology | DX: R09.89 Other specified symptoms and signs involving the circulatory and respiratory systems (principal) | CPT/HCPCS: 71046 ==

== ENCOUNTER 2024-09-30 14:15 | Outpatient (AMB) | payer OTHER, SELFPAY ==
--- NOTE | 2024-09-30 14:33 | MHC.OFFVIS ---
Vital Signs 09/30/24 14:34 Height 5 ft 2 in Weight 113 lb BMI 20.7 BP 140/74 H Blood Pressure Location Rt brachial Position Sitting Pulse 88 Intake Visit Reasons: colonoscopy/rectal screening Intake Note: Patient referred by pcp Dr. Roly Rivera for unspecified hemorrhoids. Patient c/o: constipation at times. Noticed blood when wiping. Has never had a colonoscopy. Hydramatic Specialist Required: No Accompanied by: Self / Same As Patient Allergies No Known Allergies Allergy (Verified 09/30/24 14:36) Medication List - Last Reviewed 09/30/24 by FABIANO Tavarez albuterol sulfate 90 mcg/actuation 1 inh inhalation QID PRN 30 days amlodipine 10 mg PO DAILY budesonide-formoterol 80-4.5 mcg/actuation (Symbicort) 1 inh inhalation BID 90 days cholecalciferol (vitamin D3) 25 mcg PO DAILY 90 days [donut cushion As directed] escitalopram oxalate 10 mg PO DAILY 90 days meloxicam 15 mg PO DAILY multivitamin 1 tab PO DAILY 90 days tiotropium bromide (Spiriva with HandiHaler) 1 cap inhalation DAILY 90 days HPI HPI colonoscopy/rectal screening: Details: [age] year old female referred for rectal bleeding. She says she has had this problem of passage of bright blood per rectum for about 5 years now. She says that this seems to be worsening. She says that often times, she would see blood staining her pants randomly. She says that I can feel a hemorrhoid coming out of her anus all the time She denies significant pain but does have discomfort with this She says she has never had any colonoscopy in the past.. She denies constipation. She denies any family history of colon cancer. She says she is not a smoker but has been exposed to secondhand smoke for many years. [facility] Medical History Rectal bleed Fracture of left leg Ganglion cyst Colon cancer screening Subcutaneous mass Major depression, recurrent History of tobacco abuse Surgical History History of tonsillectomy Social History Housing: Apartment Patient Tobacco Use Status: Former Tobacco user Tobacco use type: Cigarette Years Smoked: 5 years e-Cigarette/Vaping Use: Never Used service: No Current occupational status: unemployed Cognitive needs: No Hearing needs: No Vision needs: No Review of Systems Const Denies chills and Denies fever(s) Card Denies chest pain, Denies dyspnea and Denies dyspnea on exertion Resp Denies cough, Denies dyspnea and Denies dyspnea on exertion GI Reports hematochezia and Denies change in bowel habits Denies hematuria Musc Denies back pain and Denies limited range of motion Neuro Denies focal weakness and Denies convulsions Psych Denies depression and Denies mood swings Physical Exam Vital Signs: Last Vital Signs Pulse 88 09/30/24 14:34 BP 140/74 H 09/30/24 14:34 BMI result Body Mass Index 20.7 Const General: comfortable and no acute distress Orientation/consciousness: patient oriented x3 Neck Neck: Yes no lymphadenopathy Resp Other: Hollow breath sounds Auscultation: clear to auscultation bilaterally Cardio Rhythm: regular rhythm GI Other: Rectal exam shows a prolapsing internal external hemorrhoidal column anteriorly Palpation (GI): Soft to palpation, nontender and no guarding Neuro General: patient oriented x3 Assessment & Plan Assessment & Plan (1) Rectal bleed: Code(s): K62.5 - Hemorrhage of anus and rectum Category: Medical Plan: She has passage of bright blood per rectum which has been worsening over the years. This is likely from the hemorrhoidal column seen on rectal exam. However she has never had any colonoscopy before so I recommended proceeding with a colonoscopy 1st before hemorrhoidectomy. I explained the technique of colonoscopy. I reviewed the risks including but not limited to bleeding and perforation, as well as the benefits and alternatives. She understands and wants to proceed. Coding Level of Care Code New Pt Level 3 (46320) Diagnoses Rectal bleed K62.5
[2024-09-30 14:34] VITALS: BP 140/74; PULSE 88; BMI 20.7
--- OUTSIDE RECORDS SUMMARY | 2024-09-30 17:08 | XMS_ITS | Clinical Summary ---
Author Organization [facility] it Address [address] [place] [address] Care Team Providers Care Carcass Splitter Name Role Phone Unavailable Primary Care Provider [...] - 2023-2 5 season) 2024 Influenza Vaccine (Season Ended) 2025 RSV Immunization Adult Patie nts (1 - [...] age to complete this topic Meningococcal B Vaccine Aged Out No l onger eligible based on patient's age to complete [...]
== END 2024-09-30 14:59 | disposition home or self-care (01) ==
LOC: HO.HGS 14:15
PROVIDERS: PCP Internal Medicine; Visit Provider Surgery
DX: K62.5 Hemorrhage of anus and rectum (principal)
CPT/HCPCS: 99203

== ENCOUNTER → 2024-09-30 14:15 | Outpatient (BNVA) | payer OTHER, SELFPAY | PROVIDERS: PCP Internal Medicine; Visit Provider Surgery | DX: K62.5 Hemorrhage of anus and rectum (principal) | CPT/HCPCS: 99202 ==

== ENCOUNTER 2024-10-29 08:50 | Outpatient (AMB) | payer OTHER, SELFPAY ==
--- OUTSIDE RECORDS SUMMARY | 2024-10-29 09:00 | XMS_ITS | Clinical Summary ---
Author Organization [facility] it Address [address] [place] [address] Care Team Providers Care Registered Nurse Practitioner Name Role Phone Unavailable Primary Care Provider [...]
--- NOTE | 2024-10-29 09:11 | A.OFFPC_ITS ---
Intake Visit Reasons: Paperwork Allergies No Known Allergies Allergy (Verified 09/30/24 14:36) Medication List - Last Reconciled 10/29/24 by Roly Rivera MD albuterol sulfate 90 mcg/actuation 1 inh inhalation QID PRN 30 days amlodipine 10 mg PO DAILY budesonide-formoterol 80-4.5 mcg/actuation (Symbicort) 1 inh inhalation BID 90 days cholecalciferol (vitamin D3) 25 mcg PO DAILY 90 days [donut cushharshal As directed] escitalopram oxalate 10 mg PO DAILY 90 days meloxicam 15 mg PO DAILY multivitamin 1 tab PO DAILY 90 days sodium,potassium,mag sulfates 17.5-3.13-1.6 gram (Suprep Bowel Prep Kit) DILUTE; drink full amount early evening before AND next morning at least 2 hr before procedure; follow w 960 mL water PO tiotropium bromide (Spiriva with HandiHaler) 1 cap inhalation DAILY 90 days Tobacco use date assessed: 09/11/24 Dental Screening Dental Screen Date: 09/11/24 HPI Paperwork HPI Details History - The patient is a 59 year old female pr esenting with the need for clearance for a colonoscopy. - The patient is preparing for a colonos copy, and there is a need for a physical examination to ensure lung function and overall health stability before the procedure. - The patient has Chronic Obstructive Pu lmonary Disease (COPD) and uses a Symbicort inhaler as needed and Spiriva regularly. - The patient reports a history of anxie ty and is currently on Escitalopram 10 mg for management. - The patient has Essential Hypertension and is taking Amlodipine 10 mg. - The patient also has a history of Hali r Depressive Disorder. - Additionally, the patient expressed a need for assistance with financial paperwork aimed at obtaining a source of income prior to applying for Social Security Income. 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 - Ensure presence at the scheduled appoi ntment on the 06 of November for a physical examination and to clear for the colonoscopy. - Contact the pharmacy to check if any m edications need a refill; if so, they will get in touch for authorizations. - Continue the prescribed medication reg imen as directed. Review of Systems - General: No fever no chills - Neurological: No headaches no dizziness - Ear nose throat: No sore throat no hearing difficulty no ear pain - Cardiovascular: No syncope, no chest pain, no palpitations - Gastrointestinal: No nausea vomiting or diarrhea PFSH Medical History Rectal bleed Fracture of left leg Ganglion cyst Colon cancer screening Subcutaneous mass Major depression, recurrent History of tobacco abuse Surgical History History of tonsillectomy Social History Housing: Apartment Patient Tobacco Use Status: Former Tobacco user Tobacco use type: Cigarette Years Smoked: 5 years e-Cigarette/Vaping Use: Never Used service: No Current occupational status: unemployed Cognitive needs: No Hearing needs: No Vision needs: No Questionnaire Thrive Questionnaire Date Thrive assessed: 08/16/24 I am a: Patient What is your living situation today?: I do not have a steady places to live I am living on the street Within the past 12 months, did the food you bought not last and you didn't have the money to get more?: Sometimes True Within the past 12 months, did you worry whether your food would run out before you got money to buy more?: Sometimes True Do you have trouble paying for medicines?: No Do you have trouble getting transportation to medical appointments?: Yes Do you have trouble paying your heating and electricity bill?: No Do you have trouble taking care of your child, family member or friend?: No Do you have trouble with day-to-day activities such as bathing, preparing meals, shopping, managing finances, etc.?: No Are you currently unemployed and looking for a job?: Yes Are you interested in more education?: Yes Please select the resources that you would like help with: Housing/Chcf Currently or been in a relationship where the following occur: I choose not to answer THRIVE Score: 4 MARQUES-7 AMB Questionnaire MARQUES-7 Date MARQUES - 7 assessed: 09/11/24 Source: Developed by Drs. Power Li, Isa Toribio, Daljit Oviedo and colleagues, with an educational masood from [employer]. Physical exam (Primary Care) Tobacco/Smoking Status: Tobacco use Status Tobacco use date assessed 09/11/24 10/29/24 09:11 Patient Tobacco Use Status Former Tobacco user 10/29/24 09:11 Tobacco use type Cigarette 10/29/24 09:11 e-Cigarette/Vaping Use Never Used 10/29/24 09:11 Thrive Assessment: Date of Thrive Assessment Date Thrive assessed 08/16/24 10/29/24 09:11 Currently or been in a relationship where the following occur: I choose not to answer Telehealth Telehealth Telehealth Platform: [facility] Location of provider rendering services: practice address Location of patient: address on file Patient Identification confirmed using: Name, : Yes Telehealth method: voice only Patient verbally consented to treatment: Yes Patient verbally consented to billing insurance company: Yes Patient informed of any privacy concerns related to visit: Yes Minutes spent on Phone/Video with Pt.: 14 Coding Level of Care Code Est Pt Level 3 (63691) Diagnoses Chronic obstructive pulmonary disease, unspecified COPD type J44.9 COPD type: unspecified COPD Hypertension, essential I10 Anxiety, generalized F41.1 Recurrent major depressive disorder, in partial remission F33.41 Active/Remission status: in partial remission Assessment & Plan Assessment & Plan (1) COPD (chronic obstructive pulmonary disease): Code(s): J44.9 - Chronic obstructive pulmonary disease, unspecified Category: Medical Qualifiers: COPD type: unspecified COPD Qualified Code(s): J44.9 - Chronic obstructive pulmonary disease, unspecified (2) Hypertension, essential: Code(s): I10 - Essential (primary) hypertension Category: Medical (3) Anxiety, generalized: Code(s): F41.1 - Generalized anxiety disorder Category: Medical (4) Major depression, recurrent: Code(s): F33.9 - Major depressive disorder, recurrent, unspecified Category: Medical Qualifiers: Active/Remission status: in partial remission Qualified Code(s): F33.41 - Major depressive disorder, recurrent, in partial remission Plan History - The patient is a 59 year old female presenting with the need for clearance for a colonoscopy. - The patient is preparing for a colonoscopy, and there is a need for a physical examination to ensure lung function and overall health stability before the procedure. - The patient has Chronic Obstructive Pulmonary Disease (COPD) and uses a Symbicort inhaler as needed and Spiriva regularly. - The patient reports a history of anxiety and is currently on Escitalopram 10 mg for management. - The patient has Essential Hypertension and is taking Amlodipine 10 mg. - The patient also has a history of Major Depressive Disorder. - Additionally, the patient expressed a need for assistance with financial paperwork aimed at obtaining a source of income prior to applying for Social Security Income. 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 - Ensure presence at the scheduled appointment on the 06 of November for a physical examination and to clear for the colonoscopy. - Contact the pharmacy to check if any medications need a refill; if so, they will get in touch for authorizations. - Continue the prescribed medication regimen as directed.
== END 2024-10-29 10:24 | disposition home or self-care (01) ==
LOC: HO.HMCC 08:50
PROVIDERS: PCP Internal Medicine; Visit Provider Internal Medicine
DX: J44.9 Chronic obstructive pulmonary disease, unspecified (principal); I10 Essential (primary) hypertension; F41.1 Generalized anxiety disorder; F33.41 Major depressive disorder, recurrent, in partial remission

== ENCOUNTER → 2024-10-29 08:50 | Outpatient (BNVA) | payer OTHER, SELFPAY | PROVIDERS: PCP Internal Medicine; Visit Provider Internal Medicine | DX: Z01.818 Encounter for other preprocedural examination (principal); J44.9 Chronic obstructive pulmonary disease, unspecified; I10 Essential (primary) hypertension; F41.1 Generalized anxiety disorder; F33.41 Major depressive disorder, recurrent, in partial remission; Z79.899 Other long term (current) drug therapy | CPT/HCPCS: 99212 ==

== ENCOUNTER 2024-11-13 14:23 | Outpatient (AMB) | payer MEDICAID, SELFPAY ==
[2024-11-13 14:27] VITALS: BP 126/86; PULSE 64; TEMP 36.6; O2SAT 95; BMI 20.9
--- NOTE | 2024-11-13 14:27 | A.OFFPC_ITS ---
Vital Signs 3 11/13/24 14:27 Height 5 ft 2 in Weight 114 lb 4 oz BMI 20.9 BP 126/86 Blood Pressure Location Lt brachial Position Sitting Pulse 64 Pulse Source Pulse Oximeter Temp 97.9 F Temp Source Oral Pulse Oximetry (%) 95 Oxygen Delivery Method Room Air Intake Visit Reasons: Pre-op Allergies No Known Allergies Allergy (Verified 09/30/24 14:36) Medication List - Last Reconciled 11/13/24 by Roly Rivera MD albuterol sulfate 90 mcg/actuation 1 inh inhalation QID PRN 30 days amlodipine 10 mg PO DAILY budesonide-formoterol 80-4.5 mcg/actuation (Symbicort) 1 inh inhalation BID 90 days cholecalciferol (vitamin D3) 25 mcg PO DAILY 90 days [donut cushion As directed] escitalopram oxalate 10 mg PO DAILY 90 days meloxicam 15 mg PO DAILY multivitamin 1 tab PO DAILY 90 days sodium,potassium,mag sulfates 17.5-3.13-1.6 gram (Suprep Bowel Prep Kit) DILUTE; drink full amount early evening before AND next morning at least 2 hr before procedure; follow w 960 mL water PO tiotropium bromide (Spiriva with HandiHaler) 1 cap inhalation DAILY 90 days Tobacco use date assessed: 09/11/24 Dental Screening Dental Screen Date: 09/11/24 HPI Pre-op 2 HPI0 Details History - The patient is a 59-year-old female pr esenting for pre-operative clearance for a colonoscopy. - The patient has a history of acute res piratory failure with hypoxia, previously requiring respiratory care. - She reported a past infection of bacte rial pneumonia, which resulted in complications leading to the need for respiratory support. - The patient has a diagnosed history of Chronic Obstructive Pulmonary Disease (COPD), which apparently necessitates clearance for the upcoming colonoscopy procedure. - She had a chest X-ray conducted in Sep, which showed clear lungs at that time. - The patient experienced hypothesized b leeding symptoms, attributed to hemorrhoids. - Essential Hypertension is included in her problem list, for which she is on medication. - The patient's respiratory status appea rs stable at the moment, and she denies symptoms of shortness of breath today. Medical History: - Acute Respiratory Failure - Chronic Obstructive Pulmonary Disease (COPD) - Bacterial Pneumonia - Hypoxia - Essential Hypertension Medications: - Amlodipine for Essential Hypertension - Symbicort for Chronic Obstructive Pulm onary Disease - Rescue inhaler as needed for COPD symp toms - Sipriva (inhaler) for COPD Social History: - The patient expresses eagerness to ret urn to work, indicating employment status. Diagnostic Results: - Chest X-ray (conducted in September): Lung s were clear. Problem List - Acute Respiratory Failure - Chronic Obstructive Pulmonary Disease (COPD) - Bacterial Pneumonia - Hypoxia - Essential Hypertension - Hemorrhoids Patient Instructions - You can book your colonoscopy. - Start taking prednisone three days bef ore your colonoscopy to help open up your lungs.. - Ensure you know the date when it's elizabeth eduled so you can begin your prednisone. - Your EKG done today didnt show any acu te cardiac problems - continue with your inhalers - proceed for updated labs today Review of Systems - General: No fever no chills - Neurological: No headaches no dizziness - Ear nose throat: No sore throat no hearing difficulty no ear pain - Cardiovascular: No syncope, no chest pain, no palpitations - Gastrointestinal: No nausea vomiting or diarrhea - Endocrine: No polyuria polydipsia no heat intolerance - Genitourinary: No dysuria , no blood in urine Physical Exam General: No acute distress HEENT: No acute findings Neck: Supple Respiratory system: Able to talk in full sentences, no audible wheeze, pulse ox is 95 RA Cardiovascular: S1-S2 regular in rate and rhythm Gastrointestinal: No pain Extremities: No new findings HAT IRONER: Alert awake oriented x3 motor sensory intact Skin: Normal turgor PFSH Medical History Rectal bleed Fracture of left leg Ganglion cyst Colon cancer screening Subcutaneous mass Major depression, recurrent History of tobacco abuse Surgical History History of tonsillectomy Social History Housing: Apartment Patient Tobacco Use Status: Former Tobacco user Tobacco use type: Cigarette Years Smoked: 5 years e-Cigarette/Vaping Use: Never Used service: No Current occupational status: unemployed Cognitive needs: No Hearing needs: No Vision needs: No Questionnaire Thrive Questionnaire Date Thrive assessed: 08/16/24 I am a: Patient What is your living situation today?: I do not have a steady places to live I am living on the [address] Within the past 12 months, did the food you bought not last and you didn't have the money to get more?: Sometimes True Within the past 12 months, did you worry whether your food would run out before you got money to buy more?: Sometimes True Do you have trouble paying for medicines?: No Do you have trouble getting transportation to medical appointments?: Yes Do you have trouble paying your heating and electricity bill?: No Do you have trouble taking care of your child, family member or friend?: No Do you have trouble with day-to-day activities such as bathing, preparing meals, shopping, managing finances, etc.?: No Are you currently unemployed and looking for a job?: Yes Are you interested in more education?: Yes Please select the resources that you would like help with: Housing/Usp Currently or been in a relationship where the following occur: I choose not to answer THRIVE Score: 4 MARQUES-7 AMB Questionnaire MARQUES-7 Date MARQUES - 7 assessed: 09/11/24 Source: Developed by Drs. Power Li, Isa Toribio, Daljit Oviedo and colleagues, with an educational masood from [employer]. Physical exam (Primary Care) Vital Signs: Last Vital Signs Temp 97.9 F 11/13/24 14:27 Pulse 64 11/13/24 14:27 BP 126/86 11/13/24 14:27 Pulse Ox 95 11/13/24 14:27 Oxygen Delivery Method Room Air 11/13/24 14:27 BMI result Body Mass Index 20.9 Tobacco/Smoking Status: Tobacco use Status Tobacco use date assessed 09/11/24 11/13/24 14:33 Patient Tobacco Use Status Former Tobacco user 11/13/24 14:33 Tobacco use type Cigarette 11/13/24 14:33 e-Cigarette/Vaping Use Never Used 11/13/24 14:33 Thrive Assessment: Date of Thrive Assessment Date Thrive assessed 08/16/24 11/13/24 14:33 Currently or been in a relationship where the following occur: I choose not to answer Cardio Other: Office Procedures EKG [id number], Complete Coding Level of Care Code Est Pt Level 5 (24388) Diagnoses Pre-op evaluation Z01.818 Rectal bleed K62.5 Chronic obstructive pulmonary disease, unspecified COPD type J44.9 COPD type: unspecified COPD Hypertension, essential I10 CPT Codes EKG - CPT: 17753-[id number], Complete ([id number]) Time Spent (min) 40 Comment Reviewing chart, labs, [id number], EKG, coordination of care Assessment & Plan Assessment & Plan (1) Pre-op evaluation: Code(s): Z01.818 - Encounter for other preprocedural examination Category: Medical (2) Rectal bleed: Code(s): K62.5 - Hemorrhage of anus and rectum Category: Medical (3) COPD (chronic obstructive pulmonary disease): Code(s): J44.9 - Chronic obstructive pulmonary disease, unspecified Category: Medical Qualifiers: COPD type: unspecified COPD Qualified Code(s): J44.9 - Chronic obstructive pulmonary disease, unspecified (4) Hypertension, essential: Code(s): I10 - Essential (primary) hypertension Category: Medical Plan History - The patient is a 59-year-old female presenting for pre-operative clearance for a colonoscopy. - The patient has a history of acute respiratory failure with hypoxia, previously requiring respiratory care. - She reported a past infection of bacterial pneumonia, which resulted in complications leading to the need for respiratory support. - The patient has a diagnosed history of Chronic Obstructive Pulmonary Disease (COPD), which apparently necessitates clearance for the upcoming colonoscopy procedure. - She had a chest X-ray conducted in September, which showed clear lungs at that time. - The patient experienced hypothesized bleeding symptoms, attributed to hemorrhoids. - Essential Hypertension is included in her problem list, for which she is on medication. - The patient's respiratory status appears stable at the moment, and she denies symptoms of shortness of breath today. Medical History: - Acute Respiratory Failure - Chronic Obstructive Pulmonary Disease (COPD) - Bacterial Pneumonia - Hypoxia - Essential Hypertension Medications: - Amlodipine for Essential Hypertension - Symbicort for Chronic Obstructive Pulmonary Disease - Rescue inhaler as needed for COPD symptoms - Sipriva (inhaler) for COPD Social History: - The patient expresses eagerness to return to work, indicating employment status. Diagnostic Results: - Chest X-ray (conducted in September): Lungs were clear. Problem List - Acute Respiratory Failure - Chronic Obstructive Pulmonary Disease (COPD) - Bacterial Pneumonia - Hypoxia - Essential Hypertension - Hemorrhoids Patient Instructions - You can book your colonoscopy. - Start taking prednisone three days before your colonoscopy to help open up your lungs.. - Ensure you know the date when it's scheduled so you can begin your prednisone. - Your EKG done today didnt show any acute cardiac problems - continue with your inhalers - proceed for updated labs today Patient is stable for colonoscopy Orders: Orders 2 Comprehensive Met. Panel Today I10 - Essential (primary) hypertension, J44.9 - Chronic obstructive pulmonary disease, unspecified, K62.5 - Hemorrhage of anus and rectum, Z01.818 - Encounter for other preprocedural examination Complete Blood Count Auto Diff Today I10 - Essential (primary) hypertension, J44.9 - Chronic obstructive pulmonary disease, unspecified, K62.5 - Hemorrhage of anus and rectum, Z01.818 - Encounter for other preprocedural examination TSH reflex Free T4 Today I10 - Essential (primary) hypertension, J44.9 - Chronic obstructive pulmonary disease, unspecified, K62.5 - Hemorrhage of anus and rectum, Z01.818 - Encounter for other preprocedural examination Ferritin Today I10 - Essential (primary) hypertension, J44.9 - Chronic obstructive pulmonary disease, unspecified, K62.5 - Hemorrhage of anus and rectum, Z01.818 - Encounter for other preprocedural examination LDL Cholesterol Direct Today I10 - Essential (primary) hypertension, J44.9 - Chronic obstructive pulmonary disease, unspecified, K62.5 - Hemorrhage of anus and rectum, Z01.818 - Encounter for other preprocedural examination Medications: New 2 prednisone 20 mg PO DAILY 5 days 5 tabs 0RF
== END 2024-11-13 15:36 | disposition home or self-care (01) ==
PROVIDERS: PCP Internal Medicine; Visit Provider Internal Medicine
DX: Z01.818 Encounter for other preprocedural examination (principal); K62.5 Hemorrhage of anus and rectum; J44.9 Chronic obstructive pulmonary disease, unspecified; I10 Essential (primary) hypertension

== ENCOUNTER 2024-11-13 14:23 | Outpatient (REF) | payer MEDICAID, SELFPAY ==
[2024-11-13 16:27] LABS: MANUAL DIFF FLAG NO
[2024-11-13 16:35] LABS: Basophils Absolute Auto 0.1 X10*3/uL (0.0-0.2); Eosinophils Absolute Auto 0.3 X10*3/uL (0.0-0.4); Eosinophils Percent Auto 4.8 % (0-4); Hematocrit 40.9 % (37.0-47.0); Hemoglobin 13.6 g/dl (12.0-16.0); Imm Gran Abs Auto 0.03 X10*3/uL (0.00-0.03); Imm Gran Pct Auto 0.4 % (0.0-0.4); Lymphocytes Absolute Auto 1.9 X10*3/uL (1.2-4.9); Mean Corpuscular HGB Conc 33.3 g/dl (31.0-35.0); Mean Corpuscular Hemoglobin 30.4 pg (27.0-33.0); Mean Corpuscular Volume 91.3 fL (80.0-98.0); Mean Platelet Volume 10.3 fL (9.4-12.3); Monocytes Absolute Auto 0.6 X10*3/uL (0.1-1.2); Monocytes Percent Auto 8.7 % (2-11); Neutrophils Percent Auto 58.1 % (45-73); Platelet Count 335 X10*3/uL (160-400); Red Blood Count 4.48 X10*6/uL (4.20-5.50); Red Cell Distribution Width 13.2 % (11.0-16.0); White Blood Count 6.9 X10*3/uL (4.8-10.8)
[2024-11-13 18:04] LABS: Alanine Aminotransferase 20 U/L (0-31); Albumin Level 4.6 g/dL (3.5-5.0); Anion Gap 15 (12-20); Aspartate Amino Transferase 21 U/L (5-31); Bilirubin Total 0.2 mg/dL (0.0-1.0); Blood Urea Nitrogen 16 mg/dL (9-16); Calcium 9.7 mg/dL (8.4-10.2); Carbon Dioxide 31 mmol/L (22-29); Chloride 102 mmol/L (96-108); Estimated Glomerular Filt Rate > 60; Glucose Random 91 mg/dL (60-115); Potassium 3.8 mmol/L (3.3-5.1); Sodium 144 mmol/L (135-145); Total Protein 6.7 g/dL (6.5-8.0)
[2024-11-13 18:23] LABS: Ferritin 81 ng/mL (10-250); TSH reflex Free T4 0.98 uIU/mL (0.32-4.0)
[2024-11-13 18:50] LABS: Alkaline Phosphatase 72 U/L (39-117)
[2024-11-15 23:58] LABS: LDL Cholesterol Direct 106 mg/dL (<100)
== END 2024-11-13 14:24 | disposition home or self-care (01) ==
LOC: HO.HMGCLDS 14:23
PROVIDERS: PCP Internal Medicine; Visit Provider Internal Medicine
DX: Z01.818 Encounter for other preprocedural examination (principal); K62.5 Hemorrhage of anus and rectum; J44.9 Chronic obstructive pulmonary disease, unspecified; I10 Essential (primary) hypertension; Z79.899 Other long term (current) drug therapy
CPT/HCPCS: 36415; 80053; 82728; 83721; 84443; 85025; 93005; 99212

== ENCOUNTER 2024-12-08 07:51 | Day surgery (SDC) | payer OTHER, SELFPAY ==
--- OUTSIDE RECORDS SUMMARY | 2024-11-26 15:32 | XMS_ITS | Clinical Summary ---
Author Organization [facility] it Address [address] [place] [address] Care Team Providers Care Helper Maintenance Cleaning Name Role Phone Unavailable Primary Care Provider [...]
[2024-12-02 09:43] VITALS: BMI 20.8
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
[2024-12-08 07:53] VITALS: BP 142/79; PULSE 79; RESP 18; TEMP 36.9; O2SAT 95
[2024-12-08] MEDS: Lactated Ringers 1,000 ML 100 ML IVCONT (08:15)
--- NOTE | 2024-12-08 09:25 | MHC.SHP ---
Pre-Procedural Eval Section A - 24 Hr Update-Section A only Date of Service: 12/08/24 Section B - Complete if H&P > 30 days Chief Complaint: Hemorrhage of anus and rectum Details of Present Illness: Has a recurrent passage of bright blood per rectum, for colonoscopy today Relevant Family History (Specify if Yes): No Relevant Social History: None Present Medications: see Short Stay Collaborative assessment Medical History: Significant History (Anxiety, COPD, history of tobacco use, depression, hypertension) Allergies: Allergies Allergy/AdvReac Type Severity Reaction Status Date / Time No Known Allergies Allergy Verified 09/30/24 14:36 Review of Systems Sugical H&P ROS: Negative: Constitution, Cardiovascular and Respiratory Exam Surgical H&P Exam: Normal: Heart, Normal: Lungs and Normal: Abdomen Exam Comment: Has hemorrhoidal columns Plan Diagnosis/Plan: Unchanged I have reviewed the history and physical and performed a pertinent physical examination on my patient. No changes have occurred unless specified. Time Spent With Patient Time: Total time managing care of this patient today ____ minutes.
--- NOTE | 2024-12-08 10:26 | HO.OPN-COLON ---
Colonoscopy Operative Note Operative Note Date of Service: 12/08/24 Narrative: Preop diagnosis: Rectal bleeding and for colon cancer screening Postop diagnosis: 1. Large internal external hemorrhoids 2. Polyps x2, about 7 mm each at level 30 cm, removed with a hot snare 3. Polyp, 1 cm at level 10 cm removed with a hot snare Procedure: Colonoscopy with polypectomy using hot snare times daily Surgeon: Fan Ortega MD The patient is a 59 year female referred to me because of passage of bright blood per rectum likely from hemorrhoids. She has never had any colonoscopy before so I had imbedded proceeding with a colonoscopy for screening as well. I explained the technique of this procedure and she was aware of the risks, benefits, and alternatives. The patient was brought to the operating room and placed in left lateral decubitus position under monitored anesthesia care. A surgical time-out was done. A full digital rectal exam was done and this did not reveal any significant anal lesions. The tip of the Olympus colonoscope was gently introduced through the anal orifice advanced with insufflation all the way to the cecum. The cecum was intubated. The cecum was identified by visualization of the ileocecal valve as well as the appendiceal orifice. The cecal mucosa was unremarkable. The scope was gradually withdrawn with careful examination of the entire colonic mucosa being done with scope withdrawal. The patient had adequate bowel prep so it was unlikely that any lesion may have been missed. At level 30 cm, there were 2 polyps, each about 7-8 mm in size. These were both removed using hot snare and were placed in the same specimen jar At level 10 cm, there was note of a large polyp about 1 cm in size. This was removed using hot snare. The rectum was reached and there were no lesions seen. There were large internal external hemorrhoids in the anal canal, likely the source of outlet bleeding. The scope was then withdrawn completely with desufflation The patient tolerated procedure well. There were no immediate complications. In view of the large polyps removed, I would recommend another colonoscopy in 3 years also depending on the path report
[2024-12-08 10:28] VITALS: BP 121/56; PULSE 71; RESP 12; TEMP 36.5; O2SAT 97
[2024-12-08 10:30] VITALS: BP 113/58; PULSE 65; RESP 12; O2SAT 97
[2024-12-08 10:45] VITALS: BP 125/74; PULSE 65; RESP 16; TEMP 36.2; O2SAT 98
== END 2024-12-08 11:06 | disposition home or self-care (01) ==
PROVIDERS: PCP Internal Medicine; Visit Provider Surgery
PROC: 0DBE8ZZ Excision of Large Intestine, Via Natural or Artificial Opening Endoscopic (ICD-10-PCS; CPT 45385; principal; 2024-12-08 09:50)
DX: Z12.11 Encounter for screening for malignant neoplasm of colon (principal); D12.5 Benign neoplasm of sigmoid colon; D12.8 Benign neoplasm of rectum; K59.00 Constipation, unspecified; K62.5 Hemorrhage of anus and rectum; K64.8 Other hemorrhoids; K64.4 Residual hemorrhoidal skin tags; I10 Essential (primary) hypertension; J44.9 Chronic obstructive pulmonary disease, unspecified; F33.9 Major depressive disorder, recurrent, unspecified; Z79.51 Long term (current) use of inhaled steroids; Z79.899 Other long term (current) drug therapy; Z87.891 Personal history of nicotine dependence
CPT/HCPCS: 45385; 88305; J2704

== ENCOUNTER → 2024-12-08 07:51 | Outpatient (BNV) | payer OTHER, SELFPAY | PROVIDERS: PCP Internal Medicine; Visit Provider Surgery | DX: Z12.11 Encounter for screening for malignant neoplasm of colon (principal); K63.5 Polyp of colon; K64.8 Other hemorrhoids | CPT/HCPCS: 45385 ==

== ENCOUNTER → 2025-03-25 09:26 | Outpatient (BNVA) | payer OTHER, SELFPAY | PROVIDERS: PCP Internal Medicine; Visit Provider Surgery | DX: K64.9 Unspecified hemorrhoids (principal); D12.6 Benign neoplasm of colon, unspecified | CPT/HCPCS: 99212 ==

== ENCOUNTER 2025-03-25 12:02 | Outpatient (AMB) | payer OTHER, SELFPAY ==
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
[2025-03-25 13:01] VITALS: BP 172/77; PULSE 93; BMI 21.0
== END 2025-03-25 13:20 | disposition home or self-care (01) ==
LOC: HO.HGS 12:02
PROVIDERS: PCP Internal Medicine; Visit Provider Surgery
DX: K64.9 Unspecified hemorrhoids (principal); D12.6 Benign neoplasm of colon, unspecified
CPT/HCPCS: 99213

== ENCOUNTER 2025-03-31 12:01 | Outpatient (AMB) | payer OTHER, SELFPAY ==
[2025-03-31 12:06] VITALS: BP 152/74; PULSE 90; O2SAT 95; BMI 20.2
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
--- OUTSIDE RECORDS SUMMARY | 2025-03-31 16:58 | XMS_ITS | Clinical Summary ---
Author Organization [facility] it Address [address] [place] [address] Care Team Providers Care Torpedo Worker Name Role Phone Unavailable Primary Care Provider [...] Last Done Comments Breast Cancer Screening 1965 Colorectal Cancer Screening: Colonoscopy 1965 DTaP,Tdap,and Td Vaccines (1 - Tdap) 1984 Hepatitis B Vaccines (1 of 3 - 19+ 3-dose series) 1984 Cervical Cancer Screening: P ap Smear 1986 Pneumococcal Vaccine: 50+ Ye ars (1 of 1 - PCV) 2015 Zoster Vaccines (1 of 2) 2015 HIV Screening 01/10/2024 Hepatitis C Screening 01/10/2024 Social Influencers of Health Screening 01/10/2024 Depression Screening 06/10/2024 COVID-19 Vaccine (1 - 2023-2 5 season) 2025 Influenza Vaccine (#1) 2025 RSV Immunization Adult Patie nts (1 [...]
== END 2025-03-31 13:58 | disposition home or self-care (01) ==
LOC: HO.HMCC 12:02
PROVIDERS: PCP Internal Medicine; Visit Provider Internal Medicine
DX: Z01.818 Encounter for other preprocedural examination (principal); J44.9 Chronic obstructive pulmonary disease, unspecified; K64.9 Unspecified hemorrhoids; I10 Essential (primary) hypertension; F41.1 Generalized anxiety disorder

== ENCOUNTER → 2025-03-31 12:01 | Outpatient (BNVA) | payer OTHER, SELFPAY | PROVIDERS: PCP Internal Medicine; Visit Provider Internal Medicine | DX: Z01.818 Encounter for other preprocedural examination (principal); I10 Essential (primary) hypertension; J44.9 Chronic obstructive pulmonary disease, unspecified; K64.9 Unspecified hemorrhoids; F41.1 Generalized anxiety disorder; Z79.899 Other long term (current) drug therapy | CPT/HCPCS: 99212 ==